=== PATIENT | female | born 1960 | race Caucasian/White ===

== ENCOUNTER → 2017-10-21 07:49 | Outpatient (CLI) | payer BC, SELFPAY ==
[2017-10-21 08:17] LABS: Add Manual Diff / Slide Review NO; Basophils Percent Auto 0.5 % (0-2); Eosinophils Percent Auto 0.1 % (2-4); Hematocrit 41.9 % (36-46); Hemoglobin 14.2 g/dL (12.0-16.0); Lymphocytes Percent Auto 29.2 % (25-40); Mean Corpuscular HGB Conc 33.8 % (30-36); Mean Corpuscular Hemoglobin 28.8 PG (26-34); Mean Corpuscular Volume 85.2 fL (80-100); Monocytes Percent Auto 10.5 % (3-14); Neutrophils Absolute Auto 3200 /uL (3000-5900); Neutrophils Percent Auto 59.7 % (50-75); Platelet Count 193 X10^3/uL (150-400); Red Blood Cell Count 4.91 X10^6/uL (4.0-5.2); Red Cell Distribution Width 13.4 % (11.6-14.8); White Blood Cell Count 5.3 X10^3/uL (4.5-11.0)
[2017-10-21 08:21] LABS: Hemoglobin A1C% w Est Avg Glu 6.9 % (4.0-6.0)
[2017-10-21 08:50] LABS: Alanine Aminotransferase 71 IU/L (9-52); Albumin 4.1 g/dL (3.5-5.0); Albumin Globulin Ratio 1.3 (1.0-2.8); Alkaline Phosphatase 63 U/L (38-126); Aspartate Aminotransferase 50 IU/L (14-36); Blood Urea Nitrogen 9 mg/dL (7-17); Calcium 9.3 mg/dL (8.4-10.2); Carbon Dioxide 29 mmol/L (22-32); Chloride 102 mmol/L (98-107); Cholesterol 157 mg/dL (140-199); Estimated Glomerular Filt Rate > 60.0 mL/min (>60); Globulin 3.1 g/dL (1.7-4.1); Glucose 100 mg/dL (70-100); HDL Cholesterol 63 mg/dL (40-60); HEMOLYSIS < 15 (0-50); LDL Cholesterol Calculated 71 mg/dL (<100); Potassium 4.3 mmol/L (3.4-5.1); Sodium 141 mmol/L (137-145); Total Protein 7.2 g/dL (6.3-8.2); Triglycerides 115 mg/dL (35-150)
[2017-10-21 09:19] LABS: TSH w/ Reflex to FT4 1.47 uIU/mL (0.47-4.68)
[2017-10-21 12:04] LABS: Creatinine Urine Random 50.7 mg/dL
[2017-10-21 12:10] LABS: Microalbumi Creatinin Ratio Ur 11.8 ug/mg CR (<30); Microalbumin Urine Random < 0.6 mg/dL (0-1.6)
== END ==
PROVIDERS: PCP Family Medicine; Visit Provider Family Medicine
DX: K76.0 Fatty (change of) liver, not elsewhere classified (principal); E11.65 Type 2 diabetes mellitus with hyperglycemia; Z79.4 Long term (current) use of insulin; Z00.00 Encounter for general adult medical examination without abnormal findings
CPT/HCPCS: 36415; 80053; 80061; 82043; 82570; 83036; 84443; 85025

== ENCOUNTER → 2017-10-28 12:34 | Outpatient (CLI) | payer BC, SELFPAY ==
--- NOTE | 2017-10-28 | DI.US.S_ITS ---
PROCEDURE: US SOFT TISSUE HEAD AND NECK INDICATIONS: NECK MASS OSTEOPOROSIS TECHNIQUE: Real-time scanning was performed of the neck region of interest, with image documentation. COMPARISON: None. FINDINGS: No sonographic abnormality seen corresponding to the palpable abnormality. IMPRESSION: No sonographic abnormality. Dictated by: Rico HECTOR Interpreted: Ariadna Overton MD on 10/28/2017 at 13:30 Approved by: Ariadna Overton MD, PhD on 10/28/2017 at 15:35
== END ==
PROVIDERS: Family Provider Nurse Practitioner; PCP Family Medicine; Visit Provider Family Medicine
DX: R22.1 Localized swelling, mass and lump, neck (principal); M85.851 Other specified disorders of bone density and structure, right thigh
CPT/HCPCS: 76536; 77080

== ENCOUNTER → 2017-12-03 15:07 | Outpatient (CLI) | payer BC, SELFPAY ==
[2017-12-03 16:11] LABS: Alanine Aminotransferase 79 IU/L (9-52); Albumin 4.2 g/dL (3.5-5.0); Albumin Globulin Ratio 1.6 (1.0-2.8); Alkaline Phosphatase 68 U/L (38-126); Aspartate Aminotransferase 67 IU/L (14-36); BUN Creatinine Ratio 18.3 (6-22); Bilirubin Total 0.8 mg/dL (0.2-1.3); Blood Urea Nitrogen 11 mg/dL (7-17); Calcium 9.7 mg/dL (8.4-10.2); Carbon Dioxide 26 mmol/L (22-32); Chloride 100 mmol/L (98-107); Estimated Glomerular Filt Rate > 60.0 mL/min (>60); Globulin 2.6 g/dL (1.7-4.1); Glucose 179 mg/dL (70-100); HEMOLYSIS < 15 (0-50); Potassium 4.2 mmol/L (3.4-5.1); Sodium 139 mmol/L (137-145); Total Protein 6.8 g/dL (6.3-8.2)
== END ==
PROVIDERS: Family Provider Nurse Practitioner; PCP Family Medicine; Visit Provider Family Medicine
DX: E11.65 Type 2 diabetes mellitus with hyperglycemia (principal); Z79.4 Long term (current) use of insulin; K76.0 Fatty (change of) liver, not elsewhere classified
CPT/HCPCS: 36415; 80053

== ENCOUNTER → 2017-12-06 13:16 | Outpatient (CLI) | payer BC, SELFPAY ==
--- NOTE | 2017-12-06 13:19 | DI.CT.S_ITS ---
PROCEDURE: CT CHEST W CON INDICATIONS: Follow up Pulmonary Nodule TECHNIQUE: After the administration of intravenous contrast, 5 mm thick sections acquired from the pulmonary apices to the posterior costophrenic angles. 7 mm thick coronal and sagittal MIP reformats were acquired. For radiation dose reduction, the following was used: automated exposure control, adjustment of mA and/or kV according to patient size. COMPARISON: [facility], CT, THORAX WITH CONTRAST, 10/22/2010, 9:03. [facility], CT, THORAX WITH CONTRAST, 05/28/2010, 11:04. [facility], CT, UPPER EXTREMITY WO CONTRAST, 01/17/2015, 12:56. [facility], CR, CHEST 2 VIEW, 06/05/2017, 11:03. [facility], CT, THORAX WITHOUT CONTRAST, 04/29/2011, 8:13. FINDINGS: Image quality: Excellent. Lungs and pleura: Multiple subpleural pulmonary nodules were present on 05/28/2010. Many nodules are no longer present. A few residual nodules are either decreased in size or stable. No new nodules are present. No acute air space opacities. No pleural effusions or pneumothorax. Central and peripheral airways are patent and normal in caliber. Mediastinum: Heart size is normal. No pericardial effusion. No mediastinal or hilar adenopathy by size criteria. Thoracic aorta and central pulmonary arteries are normal in size. Esophagus is normal in caliber. No hiatal hernia. Bones and chest wall: Multiple surgical clips are noted in the right breast and axilla No suspicious bony lesions. No vertebral body compression fractures. No axillary or supraclavicular adenopathy by size criteria. Thyroid gland is normal. Abdomen: There is diffuse hepatic fatty infiltration. Several small indeterminate hepatic hypodensities are noted, unchanged in size. Visualized upper abdominal solid organs appear normal. Upper abdominal bowel loops are normal in caliber. IMPRESSION: 1. Stable or decrease in size of several lung nodules. No new nodules identified. 2. Hepatic steatosis. 3. Several small indeterminate low density nodules are present in liver, unchanged in size, most likely small hepatic cysts or hemangiomas. If clinically indicated, MRI may be obtained to confirm cystic nature. Dictated by: Ivan Reyes M.D. on 12/06/2017 at 15:02 Approved by: Ivan Reyes M.D. on 12/06/2017 at 15:35
== END ==
PROVIDERS: Family Provider Nurse Practitioner; PCP Family Medicine; Visit Provider Family Medicine
DX: R91.8 Other nonspecific abnormal finding of lung field (principal)
CPT/HCPCS: 71260; Q9967

== ENCOUNTER → 2018-01-20 14:02 | Outpatient (CLI) | payer BC, SELFPAY | PROVIDERS: Family Provider Nurse Practitioner; PCP Family Medicine; Visit Provider Nurse Practitioner Family | DX: M79.2 Neuralgia and neuritis, unspecified (principal) | CPT/HCPCS: 36415; 86787 ==

== ENCOUNTER → 2018-08-05 15:54 | Outpatient (CLI) | payer BC, SELFPAY ==
[2018-08-05 17:49] LABS: Vitamin D 25 Hydroxy (D3) 52.4 ng/mL (30.0-100.0)
== END ==
PROVIDERS: Family Provider Nurse Practitioner; PCP Family Medicine; Visit Provider Nurse Practitioner
DX: E55.9 Vitamin D deficiency, unspecified (principal)
CPT/HCPCS: 36415; 82306

== ENCOUNTER → 2019-02-23 08:36 | Outpatient (CLI) | payer BC, SELFPAY ==
[2019-02-23 10:01] LABS: Creatinine Urine Random 230.2 mg/dL; Protein (Total) Urine Random 14 mg/dL (0-12); Protein Creatinine Ratio Urine 0.06 GRAM/24H
[2019-02-23 10:04] LABS: Alanine Aminotransferase 70 IU/L (9-52); Albumin 4.7 g/dL (3.5-5.0); Albumin Globulin Ratio 1.6 (1.0-2.8); Alkaline Phosphatase 78 U/L (38-126); Aspartate Aminotransferase 56 IU/L (14-36); Bilirubin Total 1.2 mg/dL (0.2-1.3); Bilirubin Unconjugated 1.1 mg/dL (0.0-1.1); HEMOLYSIS < 15 (0-50); Total Protein 7.7 g/dL (6.3-8.2)
== END ==
PROVIDERS: Family Provider Family Medicine; PCP Family Medicine; Visit Provider Internal Medicine Endocrinology, Diabetes & Metabolism
DX: E11.9 Type 2 diabetes mellitus without complications (principal); R74.8 Abnormal levels of other serum enzymes
CPT/HCPCS: 36415; 80076; 82570; 84156

== ENCOUNTER → 2019-06-28 08:53 | Outpatient (CLI) | payer BC, SELFPAY ==
[2019-06-28 10:53] LABS: Hemoglobin A1C% w Est Avg Glu 6.4 % (4.0-6.0)
[2019-06-28 11:38] LABS: Alanine Aminotransferase 53 IU/L (<35); Albumin 4.4 g/dL (3.5-5.0); Albumin Globulin Ratio 1.5 (1.0-2.8); Alkaline Phosphatase 77 U/L (38-126); Aspartate Aminotransferase 45 IU/L (14-36); BUN Creatinine Ratio 15.7 (6-22); Blood Urea Nitrogen 11 mg/dL (7-17); Calcium 9.9 mg/dL (8.4-10.2); Carbon Dioxide 25 mmol/L (22-32); Chloride 104 mmol/L (98-107); Estimated Glomerular Filt Rate > 60.0 mL/min (>60); Globulin 2.9 g/dL (1.7-4.1); Glucose 175 mg/dL (70-100); HEMOLYSIS < 15 (0-50); Potassium 4.6 mmol/L (3.4-5.1); Sodium 140 mmol/L (137-145); Total Protein 7.3 g/dL (6.3-8.2)
[2019-06-28 11:55] LABS: Free T4, Direct Thyroxine 0.87 ng/dL (0.78-2.19)
[2019-06-28 12:09] LABS: Thyroid Stimulating Hormone 0.92 uIU/mL (0.47-4.68)
== END ==
PROVIDERS: Family Provider Family Medicine; PCP Family Medicine; Referring Provider Internal Medicine Endocrinology, Diabetes & Metabolism; Visit Provider Internal Medicine Endocrinology, Diabetes & Metabolism
DX: E11.9 Type 2 diabetes mellitus without complications (principal)
CPT/HCPCS: 36415; 80053; 83036; 84439; 84443

== ENCOUNTER → 2020-01-09 08:14 | Outpatient (CLI) | payer BC, SELFPAY ==
[2020-01-09 09:41] LABS: Hemoglobin A1C% w Est Avg Glu 6.8 % (4.0-6.0)
[2020-01-09 10:15] LABS: Cholesterol 176 mg/dL (140-199); HDL Cholesterol 68 mg/dL (40-60); LDL Cholesterol Calculated 85 mg/dL (<100); Triglycerides 115 mg/dL (35-150)
[2020-01-09 10:17] LABS: Creatinine Urine Random 76.1 mg/dL
[2020-01-09 10:21] LABS: Microalbumi Creatinin Ratio Ur 10.5 ug/mg CR (<30); Microalbumin Urine Random 0.8 mg/dL (0-1.6)
== END ==
PROVIDERS: Family Provider Family Medicine; PCP Family Medicine; Referring Provider Nurse Practitioner Family; Visit Provider Nurse Practitioner Family
DX: E11.9 Type 2 diabetes mellitus without complications (principal)
CPT/HCPCS: 36415; 80061; 82043; 82570; 83036

== ENCOUNTER → 2020-08-28 10:16 | Outpatient (CLI) | payer BC, SELFPAY ==
[2020-08-28 12:27] LABS: Cholesterol 126 mg/dL (140-199); HDL Cholesterol 72 mg/dL (40-60); LDL Cholesterol Calculated 35 mg/dL (<100); Triglycerides 95 mg/dL (35-150)
[2020-08-28 12:29] LABS: Creatinine Urine Random 132.3 mg/dL
[2020-08-28 12:33] LABS: Microalbumi Creatinin Ratio Ur 7.5 ug/mg CR (<30)
== END ==
PROVIDERS: Family Provider Family Medicine; PCP Family Medicine; Referring Provider Nurse Practitioner Family; Visit Provider Nurse Practitioner Family
DX: E11.9 Type 2 diabetes mellitus without complications (principal)
CPT/HCPCS: 36415; 80061; 82043; 82570

== ENCOUNTER → 2020-09-20 09:48 | Outpatient (CLI) | payer BC, SELFPAY ==
[2020-09-20 11:19] LABS: COVID19 -Nasal RAPID Negative (Negative)
== END ==
PROVIDERS: Family Provider Family Medicine; PCP Family Medicine; Referring Provider Surgery; Visit Provider Surgery
DX: Z20.822 Contact with and (suspected) exposure to COVID-19 (principal)
CPT/HCPCS: 87635; C9803

== ENCOUNTER 2020-09-23 06:27 | Day surgery (SDC) | payer BC, SELFPAY ==
--- NOTE | 2020-09-23 | PATH_ITS ---
[facility] Accession Number: [id number] . 01 Material submitted: . colon - SIGMOID POLYP . 02 Diagnosis: Sigmoid Colon, Polyp, Biopsy: Tubular adenoma. MRV 09/26/2020 1236 Local . 02 Electronically signed: . Raquel Jean Baptiste MD, Pathologist NPI- [id number] . 01 Gross description: . SIGMOID POLYP: Received in formalin is 1 fragment(s) of hale, soft tissue measuring 0.6 x 0.3 x 0.3 cm submitted entirely in 1 cassette(s) /ADA 09/24/2020 2250 Local . 02 Pathologist provided ICD-10: D12.5 . 02 CPT . 817407 Performed at: 01 [facility] [address] [facility], [place], [place] [id number] MD Flavio Neff MD Phone: [phone] Performed at: 02 [facility] [address] [place], [place] [id number] MD Raquel Jean Baptiste MD Phone: [phone]
[2020-09-23] MEDS: LACTATED RINGERS 1,000 ML 200 ML IV (07:30)
[2020-09-23 07:31] VITALS: BP 157/90; PULSE 96; RESP 14; TEMP 36.6; O2SAT 97; BMI 34.1
--- NOTE | 2020-09-23 07:45 | PM.HP.1 ---
History of Present Illness History of Present Illness Date Patient Seen: 09/23/20 Time Patient Seen: 07:45 Chief complaint: SCREENING COLONOSCOPY Narrative: The patient presents for colorectal sreening. She had a previous colonoscopy 10 years which was normal.. No personal or family history of colon cancer. On further history denies any recent gastrointestinal symptoms. No nausea, vomiting, abdominal pain, loss of appetite, unexplained weight loss, change in bowel habits, diarrhea, constipation, melena, hematochezia, or bright red blood per rectum. Patient History Medical History Abnormal Pap smear of cervix Anxiety Depression Diabetes mellitus Ductal carcinoma in situ (DCIS) of right breast Obstructive sleep apnea of adult Surgical History Status post breast biopsy (1986) Status post delivery (1990) Status post chemotherapy (2005) Status post dilation and curettage (2011) Status post excision of lipoma (1970) Status post laparoscopy (1983) Status post radiation therapy (2005) Status post surgery (12/04/11) Status post tonsillectomy and adenoidectomy (1964) Status post tubal ligation (1990) Status post wrist surgery (2001) Family & Social History Social History: household members spouse lives independently Yes caregiver/support person No Tobacco & Substance use: Smoking Status Never smoker alcohol intake current alcohol intake frequency holiday/special occasion Substance Use Type does not use Meds Home Medications and Allergies Home Medications Medication Instructions Recorded Confirmed Type desvenlafaxine succinate 25 mg 25 mg PO DAILY 10/18/17 09/23/20 History tablet,extended release 24 hr lorazepam 0.5 mg tablet 0.5 mg PO BEDTIME 02/07/18 09/23/20 History blood sugar diagnostic #10 each 08/30/18 09/02/18 History lamotrigine 100 mg tablet 100 mg PO .QHS #0 tab 08/30/18 09/23/20 History lancets #50 each 08/30/18 09/02/18 History melatonin 5 mg tablet 5 mg PO BEDTIME 08/30/18 09/23/20 History metformin 500 mg tablet 500 mg PO .COMPLEX 08/30/18 09/23/20 History Respironics Dreamstation CPAP #1 ea 05/06/19 05/06/19 History glimepiride 4 mg tablet 8 mg PO BID 03/03/19 09/23/20 History nystatin 100,000 unit/gram topical 1 applictn TOP TID #60 gram 07/18/19 09/23/20 Rx powder buspirone 10 mg tablet 20 mg PO BID tab 01/18/20 09/23/20 History dulaglutide 1.5 mg/0.5 mL 0.75 mg SUBCUT QWEEK ml 01/18/20 09/23/20 History subcutaneous pen injector pramipexole 0.25 mg tablet 0.25 mg PO DAILY 01/18/20 09/23/20 History chlorpheniramine maleate 4 mg PO BID 09/23/20 09/23/20 History [Chlorpheniramine Allergy] rosuvastatin 5 mg PO BEDTIME 09/23/20 09/23/20 History Allergies Allergy/AdvReac Type Severity Reaction Status Date / Time hydrocodone [HYDROCODONE] Allergy Mild ITCHING Verified 09/23/20 07:15 erythromycin base AdvReac Unknown GI UPSET Verified 09/23/20 07:15 [ERYTHROMYCIN BASE] TO GENERIC Review of Systems Review of Systems ROS: Yes All systems reviewed with the patient and are negative except as otherwise documented Exam Vital Signs (past 8 hours): - 09/23/20 07:31 Temperature 98 F Pulse Rate 96 H Respiratory Rate 14 Blood Pressure 157/90 H Pulse Oximetry 97 Oxygen Delivery Method Room Air Narrative Exam Narrative: GENERAL-well developed adult woman, no acute distress HEENT-no scleral icterus, hearing intact NECK-no JVD, trachea midline CVS- regular rate, no peripheral edema RESP-unlabored respiratory effort, no audible wheezing GI-soft, nontender nondistended MSK-no cyanosis or clubbing, extremities without deformity SKIN-warm, dry NEURO-alert and oriented, no focal deficits PYSCH-Appropriate mood and affect Assessment & Plan Assessment & Plan narrative: The patient requires colorectal screening and colonoscopy is recommended. Technical details were discussed. Risks, benefits, alternatives explained. Risks including but not limited to myocardial infarction, aspiration, bleeding, pain, missed lesion, incomplete examination, need for further radiographic studies, colonic perforation, and need for major abdominal surgery were discussed. All questions were answered to their satisfaction, and they are in agreement with this plan.
[2020-09-23] MEDS: fentaNYL 250 MCG/5 ML INJ IV (08:04)
[2020-09-23] MEDS: MIDAZOLAM 5 MG/5 ML VIAL IV (08:07)
[2020-09-23 08:20] VITALS: BP 150/90; PULSE 83; RESP 12; TEMP 36.6; O2SAT 91
--- NOTE | 2020-09-23 08:20 | P.OP.ENDO_ITS ---
Operative Date/Time/Diagnoses Date of procedure: 09/23/20 Time of procedure: 08:20 Pre-op diagnosis: Screening colonoscopy Post-op diagnosis: same Procedure & Clinicians Study performed: Colonoscopy polypectomy Same procedure as scheduled: Yes Indications: Screening colonoscopy Surgeon: Mal Sy Procedure Notes Procedure in detail: Medications: Conscious sedation using 7 mg IV midazolam and 150 mcg IV of fentanyl The history and physical was performed/updated and the patient is ASA class is 2. The procedure was discussed in detail with the patient. Potential risks complications including infection, bleeding, missed diagnosis, perforation, need for surgery, and were explained. Their questions were answered and informed consent was obtained. Patient was brought to the procedure room and placed standard monitoring equ ipment. The patient's vital signs were monitored continuously throughout the entire procedure. Prior to starting time-out was performed. The patient was placed in the left lateral recumbent position. Procedural sedation was administered. Examination began with a thorough inspection of the perianal area there was no evidence of fissures, fistulae, external hemorrhoids or cutaneous malignancy. The colonoscopy scope was then placed into the anal canal and was advanced to the cecum, which was identified by the ileocecal valve, the appendiceal orifice and the confluence of the taenia. The scope was then slowly withdrawn examining colon thoroughly in all directions, irrigating it of any residual stool. 1. 7 mm polyp within the sigmoid colon removed with cold snare. Hemostasis observed. 2. Grade 1 internal hemorrhoids The patient tolerated the procedure well. They will be discharged once criteria are met. The prep was of good/excellent quality. The withdrawl time was 8 minutes. The sedation time was 26 minutes. Specimen(s): other (Sigmoid polyp) Complications: none Impression: Colonic polyp Post-procedure Recommendations: Colonscopy in 5 years Disposition: same day surgery
[2020-09-23 08:25] VITALS: BP 147/77; PULSE 77; RESP 14; O2SAT 92
[2020-09-23 08:30] VITALS: BP 127/73; PULSE 89; RESP 19; O2SAT 92
[2020-09-23 08:35] VITALS: BP 136/65; PULSE 84; RESP 16
[2020-09-23 08:39] VITALS: BP 137/72; PULSE 82; RESP 17; TEMP 36.4; O2SAT 95
== END 2020-09-23 08:47 | disposition home or self-care (01) ==
PROVIDERS: Family Provider Family Medicine; PCP Family Medicine; Referring Provider Family Medicine; Visit Provider Surgery
PROC: 0DJD8ZZ Inspection of Lower Intestinal Tract, Via Natural or Artificial Opening Endoscopic (ICD-10-PCS; CPT 45378; principal; 2020-09-23 07:45)
DX: Z12.11 Encounter for screening for malignant neoplasm of colon (principal); K64.0 First degree hemorrhoids; G47.33 Obstructive sleep apnea (adult) (pediatric); E11.9 Type 2 diabetes mellitus without complications; F32.9 Major depressive disorder, single episode, unspecified; F41.9 Anxiety disorder, unspecified; Z79.84 Long term (current) use of oral hypoglycemic drugs; D12.5 Benign neoplasm of sigmoid colon
CPT/HCPCS: 45385; 99152; J2250; J3010

== ENCOUNTER → 2020-09-28 09:11 | Outpatient (CLI) | payer BC, SELFPAY ==
[2020-09-28 09:45] LABS: Hemoglobin A1C% w Est Avg Glu 7.6 % (4.0-6.0)
== END ==
PROVIDERS: Family Provider Family Medicine; PCP Family Medicine; Referring Provider Nurse Practitioner Family; Visit Provider Nurse Practitioner Family
DX: E11.8 Type 2 diabetes mellitus with unspecified complications (principal)
CPT/HCPCS: 36415; 83036

== ENCOUNTER → 2021-01-07 08:39 | Outpatient (CLI) | payer BC, SELFPAY ==
[2021-01-07 10:11] LABS: Hemoglobin A1C% w Est Avg Glu 6.3 % (4.0-6.0)
== END ==
PROVIDERS: Family Provider Family Medicine; PCP Family Medicine; Referring Provider Psychiatry & Neurology Psychiatry; Visit Provider Psychiatry & Neurology Psychiatry
DX: E11.9 Type 2 diabetes mellitus without complications (principal)
CPT/HCPCS: 36415; 83036

== ENCOUNTER → 2021-08-16 08:11 | Outpatient (CLI) | payer OTHER, SELFPAY ==
[2021-08-16 09:35] LABS: Hemoglobin A1C% w Est Avg Glu 7.7 % (4.0-6.0)
[2021-08-16 10:17] LABS: Alanine Aminotransferase 34 IU/L (<35); Albumin 4.2 g/dL (3.5-5.0); Albumin Globulin Ratio 1.7 (1.0-2.8); Alkaline Phosphatase 59 U/L (38-126); Aspartate Aminotransferase 34 IU/L (14-36); BUN Creatinine Ratio 15.4 (6-22); Bilirubin Total 1.4 mg/dL (0.2-1.3); Blood Urea Nitrogen 10 mg/dL (7-17); Calcium 9.3 mg/dL (8.4-10.2); Carbon Dioxide 29 mmol/L (22-32); Chloride 104 mmol/L (98-107); Cholesterol 124 mg/dL (140-199); Estimated Glomerular Filt Rate > 60 mL/min (>60); Globulin 2.5 g/dL (1.7-4.1); Glucose 162 mg/dL (80-110); HDL Cholesterol 69 mg/dL (40-60); HEMOLYSIS < 15 (0-50); LDL Cholesterol Calculated 39 mg/dL (<100); Potassium 4.4 mmol/L (3.4-5.1); Sodium 140 mmol/L (137-145); Total Protein 6.7 g/dL (6.3-8.2); Triglycerides 81 mg/dL (35-150)
[2021-08-16 10:47] LABS: TSH w/ Reflex to FT4 2.04 uIU/mL (0.47-4.68)
[2021-08-16 10:57] LABS: Creatinine Urine Random 124.1 mg/dL
[2021-08-16 10:58] LABS: Microalbumi Creatinin Ratio Ur 9.6 ug/mg CR (<30); Microalbumin Urine Random 1.2 mg/dL (0-1.6)
== END ==
PROVIDERS: Family Provider Family Medicine; PCP Family Medicine; Referring Provider Family Medicine; Visit Provider Family Medicine
DX: Z00.00 Encounter for general adult medical examination without abnormal findings (principal); E11.9 Type 2 diabetes mellitus without complications; Z79.4 Long term (current) use of insulin; Z13.6 Encounter for screening for cardiovascular disorders
CPT/HCPCS: 36415; 80053; 80061; 82043; 82570; 83036; 84443

== ENCOUNTER → 2022-03-04 13:42 | Outpatient (CLI) | payer OTHER, SELFPAY ==
[2022-03-04 14:42] LABS: Hemoglobin A1C% w Est Avg Glu 6.9 % (4.0-6.0)
== END ==
PROVIDERS: Family Provider Family Medicine; PCP Family Medicine; Referring Provider Nurse Practitioner; Visit Provider Nurse Practitioner
DX: E11.65 Type 2 diabetes mellitus with hyperglycemia (principal)
CPT/HCPCS: 36415; 83036

== ENCOUNTER → 2022-09-02 08:16 | Outpatient (CLI) | payer OTHER, SELFPAY ==
[2022-09-02 09:59] LABS: Alanine Aminotransferase 39 IU/L (<35); Albumin 4.3 g/dL (3.5-5.0); Albumin Globulin Ratio 1.8 (1.0-2.8); Alkaline Phosphatase 65 U/L (38-126); Aspartate Aminotransferase 39 IU/L (14-36); BUN Creatinine Ratio 12.7 (6-22); Bilirubin Total 1.5 mg/dL (0.2-1.3); Blood Urea Nitrogen 7 mg/dL (7-17); Calcium 9.1 mg/dL (8.4-10.2); Carbon Dioxide 26 mmol/L (22-32); Chloride 103 mmol/L (98-107); Cholesterol 125 mg/dL (140-199); Estimated Glomerular Filt Rate > 60 mL/min (>60); Globulin 2.4 g/dL (1.7-4.1); Glucose 115 mg/dL (80-110); HDL Cholesterol 63 mg/dL (40-60); HEMOLYSIS < 15 (0-50); LDL Cholesterol Calculated 46 mg/dL (<100); Potassium 4.4 mmol/L (3.4-5.1); Sodium 137 mmol/L (137-145); Total Protein 6.7 g/dL (6.3-8.2); Triglycerides 82 mg/dL (35-150)
[2022-09-02 10:09] LABS: Creatinine Urine Random 83.8 mg/dL
[2022-09-02 10:11] LABS: Microalbumi Creatinin Ratio Ur 13.1 ug/mg CR (<30); Microalbumin Urine Random 1.1 mg/dL (0-1.6)
[2022-09-03 15:51] LABS: x Labcorp Estim. Avg Glu (eAG) 169 mg/dL (.); x Labcorp Hemoglobin A1c 7.5 % (4.8-5.6)
== END ==
PROVIDERS: Family Provider Family Medicine; PCP Family Medicine; Referring Provider Nurse Practitioner; Visit Provider Nurse Practitioner
DX: E11.65 Type 2 diabetes mellitus with hyperglycemia (principal)
CPT/HCPCS: 36415; 80053; 80061; 82043; 82570; 83036

== ENCOUNTER → 2022-12-11 08:03 | Outpatient (CLI) | payer OTHER, SELFPAY ==
[2022-12-12 04:12] LABS: Labcorp Hemoglobin (Hb) A1c 6.6 % (4.8-5.6)
== END ==
PROVIDERS: Family Provider Family Medicine; PCP Physician Assistant; Referring Provider Nurse Practitioner; Visit Provider Nurse Practitioner
DX: E11.65 Type 2 diabetes mellitus with hyperglycemia (principal)
CPT/HCPCS: 36415; 83036

== ENCOUNTER → 2023-03-09 09:07 | Outpatient (CLI) | payer OTHER, SELFPAY ==
[2023-03-09 11:16] LABS: Hemoglobin A1C% w Est Avg Glu 7.1 % (4.0-6.0)
== END ==
PROVIDERS: Family Provider Family Medicine; PCP Physician Assistant; Referring Provider Nurse Practitioner; Visit Provider Nurse Practitioner
DX: E11.65 Type 2 diabetes mellitus with hyperglycemia (principal)
CPT/HCPCS: 36415; 83036

== ENCOUNTER → 2023-06-11 08:39 | Outpatient (CLI) | payer OTHER, SELFPAY ==
[2023-06-11 10:04] LABS: Cholesterol 117 mg/dL (140-199); HDL Cholesterol 56 mg/dL (40-60); LDL Cholesterol Calculated 46 mg/dL (<100); Triglycerides 73 mg/dL (35-150); VLDL Cholesterol Calculated 15 mg/dL (2-30)
[2023-06-11 10:36] LABS: TSH w/ Reflex to FT4 1.58 uIU/mL (0.47-4.68)
[2023-06-11 10:53] LABS: Vitamin B12 261 pg/mL (239-931)
[2023-06-13 06:08] LABS: x Labcorp Estim. Avg Glu (eAG) 171 mg/dL (.); x Labcorp Hemoglobin A1c 7.6 % (4.8-5.6)
== END ==
LOC: LAB 08:41
PROVIDERS: Family Provider Family Medicine; PCP Physician Assistant; Referring Provider Nurse Practitioner; Visit Provider Nurse Practitioner
DX: E11.65 Type 2 diabetes mellitus with hyperglycemia (principal); E78.2 Mixed hyperlipidemia
CPT/HCPCS: 36415; 80061; 82607; 83036; 84443

== ENCOUNTER → 2023-08-31 09:46 | Outpatient (CLI) | payer OTHER, SELFPAY ==
[2023-08-31 10:31] LABS: Hemoglobin A1C% w Est Avg Glu 6.5 % (4.0-6.0)
[2023-08-31 10:52] LABS: Alanine Aminotransferase 22 IU/L (<35); Albumin 3.8 g/dL (3.5-5.0); Albumin Globulin Ratio 1.8 (1.0-2.8); Alkaline Phosphatase 88 U/L (38-126); Aspartate Aminotransferase 22 IU/L (14-36); BUN Creatinine Ratio 14.9 (6-22); Bilirubin Total 1.1 mg/dL (0.2-1.3); Blood Urea Nitrogen 7 mg/dL (7-17); Calcium 9.1 mg/dL (8.4-10.2); Carbon Dioxide 28 mmol/L (22-32); Chloride 109 mmol/L (98-107); Estimated Glomerular Filt Rate > 60 mL/min (>60); Globulin 2.1 g/dL (1.7-4.1); Glucose 163 mg/dL (80-110); HEMOLYSIS < 15 (0-50); Potassium 3.9 mmol/L (3.4-5.1); Sodium 140 mmol/L (137-145); Total Protein 5.9 g/dL (6.3-8.2)
== END ==
PROVIDERS: Family Provider Family Medicine; PCP Registered Nurse Diabetes Educator; Referring Provider Nurse Practitioner; Visit Provider Nurse Practitioner
DX: E11.65 Type 2 diabetes mellitus with hyperglycemia (principal)
CPT/HCPCS: 36415; 80053; 83036

== ENCOUNTER → 2023-12-01 17:21 | Outpatient (CLI) | payer OTHER, SELFPAY ==
[2023-12-01 18:26] LABS: Hemoglobin A1C% w Est Avg Glu 6.1 % (4.0-6.0)
[2023-12-01 20:24] LABS: Alanine Aminotransferase 32 IU/L (<35); Albumin 4.3 g/dL (3.5-5.0); Albumin Globulin Ratio 1.6 (1.0-2.8); Alkaline Phosphatase 83 U/L (38-126); Aspartate Aminotransferase 32 IU/L (14-36); BUN Creatinine Ratio 20.7 (6-22); Bilirubin Total 1.1 mg/dL (0.2-1.3); Blood Urea Nitrogen 12 mg/dL (7-17); Calcium 9.4 mg/dL (8.4-10.2); Carbon Dioxide 27 mmol/L (22-32); Chloride 103 mmol/L (98-107); Estimated Glomerular Filt Rate > 60 mL/min (>60); Globulin 2.7 g/dL (1.7-4.1); Glucose 94 mg/dL (80-110); HEMOLYSIS < 15 (0-50); Potassium 4.2 mmol/L (3.4-5.1); Sodium 138 mmol/L (137-145)
== END ==
PROVIDERS: Family Provider Family Medicine; PCP Registered Nurse Diabetes Educator; Referring Provider Nurse Practitioner; Visit Provider Nurse Practitioner
DX: E11.65 Type 2 diabetes mellitus with hyperglycemia (principal)
CPT/HCPCS: 36415; 80053; 83036

== ENCOUNTER → 2024-01-27 08:47 | Outpatient (CLI) | payer OTHER, SELFPAY ==
[2024-01-27 10:09] LABS: Add Manual Diff / Slide Review NO; Basophils Absolute Auto 0 /uL (0-100); Basophils Percent Auto 0.6 % (0-2); Eosinophils Absolute Auto 0 /uL (0-450); Eosinophils Percent Auto 0.4 % (2-4); Hematocrit 38.5 % (36-46); Hemoglobin 12.9 g/dL (12.0-16.0); Lymphocytes Absolute Auto 300 /uL (1100-4500); Lymphocytes Percent Auto 10.5 % (25-40); Mean Corpuscular HGB Conc 33.5 % (30-36); Mean Corpuscular Hemoglobin 29.4 PG (26-34); Mean Corpuscular Volume 87.6 fL (80-100); Monocytes Absolute Auto 400 /uL (0-900); Monocytes Percent Auto 12.2 % (3-14); Neutrophils Absolute Auto 2400 /uL (1500-7000); Neutrophils Percent Auto 76.3 % (50-75); Platelet Count 174 X10^3/uL (150-400); Red Cell Distribution Width 15.7 % (11.6-14.8); White Blood Cell Count 3.2 X10^3/uL (4.5-11.0)
[2024-01-27 10:37] LABS: Alanine Aminotransferase 29 IU/L (<35); Albumin Globulin Ratio 1.6 (1.0-2.8); Alkaline Phosphatase 75 U/L (38-126); Aspartate Aminotransferase 30 IU/L (14-36); BUN Creatinine Ratio 20.4 (6-22); Blood Urea Nitrogen 11 mg/dL (7-17); Calcium 8.5 mg/dL (8.4-10.2); Carbon Dioxide 24 mmol/L (22-32); Chloride 105 mmol/L (98-107); Estimated Glomerular Filt Rate > 60 mL/min (>60); Globulin 2.5 g/dL (1.7-4.1); Glucose 156 mg/dL (80-110); HEMOLYSIS < 15 (0-50); Magnesium 1.9 mg/dL (1.6-2.3); Phosphorous 2.6 mg/dL (2.8-4.1); Potassium 4.5 mmol/L (3.4-5.1); Sodium 136 mmol/L (137-145); Total Protein 6.5 g/dL (6.3-8.2)
== END ==
PROVIDERS: Family Provider Family Medicine; PCP Registered Nurse Diabetes Educator; Referring Provider Internal Medicine Hematology & Oncology; Visit Provider Internal Medicine Hematology & Oncology
DX: C50.411 Malignant neoplasm of upper-outer quadrant of right female breast (principal); Z17.0 Estrogen receptor positive status [ER+]
CPT/HCPCS: 36415; 80053; 83735; 84100; 85025

== ENCOUNTER → 2024-02-10 16:37 | Outpatient (CLI) | payer OTHER, SELFPAY ==
[2024-02-10 18:13] LABS: Add Manual Diff / Slide Review NO; Basophils Absolute Auto 0 /uL (0-100); Basophils Percent Auto 0.5 % (0-2); Eosinophils Absolute Auto 0 /uL (0-450); Eosinophils Percent Auto 0.8 % (2-4); Hematocrit 37.4 % (36-46); Hemoglobin 12.7 g/dL (12.0-16.0); Lymphocytes Absolute Auto 500 /uL (1100-4500); Lymphocytes Percent Auto 18.7 % (25-40); Mean Corpuscular Hemoglobin 29.9 PG (26-34); Monocytes Absolute Auto 300 /uL (0-900); Monocytes Percent Auto 9.7 % (3-14); Neutrophils Absolute Auto 1900 /uL (1500-7000); Neutrophils Percent Auto 70.3 % (50-75); Platelet Count 146 X10^3/uL (150-400); Red Blood Cell Count 4.25 X10^6/uL (4.0-5.2); Red Cell Distribution Width 15.9 % (11.6-14.8); White Blood Cell Count 2.7 X10^3/uL (4.5-11.0)
[2024-02-10 18:38] LABS: BUN Creatinine Ratio 17.4 (6-22); Blood Urea Nitrogen 16 mg/dL (7-17); Carbon Dioxide 24 mmol/L (22-32); Chloride 102 mmol/L (98-107); Estimated Glomerular Filt Rate > 60 mL/min (>60); Glucose 89 mg/dL (80-110); HEMOLYSIS < 15 (0-50); Magnesium 2.1 mg/dL (1.6-2.3); Potassium 4.1 mmol/L (3.4-5.1); Sodium 135 mmol/L (137-145)
== END ==
PROVIDERS: Family Provider Family Medicine; PCP Registered Nurse Diabetes Educator; Referring Provider Internal Medicine Hematology & Oncology; Visit Provider Internal Medicine Hematology & Oncology
DX: C50.411 Malignant neoplasm of upper-outer quadrant of right female breast (principal)
CPT/HCPCS: 36415; 80048; 83735; 84100; 85025

== ENCOUNTER → 2024-03-14 07:26 | Outpatient (CLI) | payer OTHER, SELFPAY ==
[2024-03-14 08:58] LABS: Hematocrit 30.9 % (36-46); Mean Corpuscular HGB Conc 35.5 % (30-36); Mean Corpuscular Hemoglobin 31.9 PG (26-34); Platelet Count 178 X10^3/uL (150-400); Red Blood Cell Count 3.43 X10^6/uL (4.0-5.2)
[2024-03-14 09:09] LABS: Add Manual Diff / Slide Review YES; White Blood Cell Count 1.7 X10^3/uL (4.5-11.0)
[2024-03-14 09:31] LABS: HEMOLYSIS < 15 (0-50); Iron 106 ug/dL (37-170)
[2024-03-14 09:35] LABS: Alanine Aminotransferase 59 IU/L (<35); Albumin 3.8 g/dL (3.5-5.0); Albumin Globulin Ratio 1.6 (1.0-2.8); Alkaline Phosphatase 44 U/L (38-126); Aspartate Aminotransferase 46 IU/L (14-36); BUN Creatinine Ratio 16.4 (6-22); Bilirubin Total 1.2 mg/dL (0.2-1.3); Blood Urea Nitrogen 12 mg/dL (7-17); Calcium 9.1 mg/dL (8.4-10.2); Carbon Dioxide 26 mmol/L (22-32); Chloride 104 mmol/L (98-107); Estimated Glomerular Filt Rate > 60 mL/min (>60); Globulin 2.4 g/dL (1.7-4.1); Glucose 104 mg/dL (80-110); HEMOLYSIS < 15 (0-50); Magnesium 1.4 mg/dL (1.6-2.3); Phosphorous 3.2 mg/dL (2.8-4.1); Potassium 4.5 mmol/L (3.4-5.1); Sodium 136 mmol/L (137-145); Total Protein 6.2 g/dL (6.3-8.2)
[2024-03-14 09:42] LABS: Percent Iron Saturation 31 % (15-50); Total Iron Binding Capacity 347 ug/dL (265-497); Transferrin 265 mg/dL (206-381)
[2024-03-14 09:44] LABS: Neutrophils Absolute Manual 731 /uL (3000-5900); Total Cells Counted 100
[2024-03-14 09:45] LABS: RBC Morphology Normal Morphology
[2024-03-14 10:07] LABS: Ferritin 94 ng/mL (11-264)
== END ==
PROVIDERS: Internal Medicine Hematology & Oncology; Family Provider Family Medicine; PCP Registered Nurse Diabetes Educator; Referring Provider Nurse Practitioner; Visit Provider Nurse Practitioner
DX: C50.411 Malignant neoplasm of upper-outer quadrant of right female breast (principal); R25.8 Other abnormal involuntary movements; E83.10 Disorder of iron metabolism, unspecified
CPT/HCPCS: 36415; 80053; 82728; 83540; 83550; 83735; 84100; 85007; 85025

== ENCOUNTER → 2024-03-20 07:41 | Outpatient (CLI) | payer OTHER, SELFPAY ==
[2024-03-20 08:22] LABS: Hemoglobin A1C% w Est Avg Glu 5.6 % (4.0-6.0)
== END ==
PROVIDERS: Family Provider Family Medicine; PCP Registered Nurse Diabetes Educator; Referring Provider Nurse Practitioner; Visit Provider Nurse Practitioner
DX: E11.65 Type 2 diabetes mellitus with hyperglycemia (principal)
CPT/HCPCS: 36415; 83036

== ENCOUNTER → 2024-04-10 08:34 | Outpatient (CLI) | payer OTHER, SELFPAY ==
[2024-04-10 10:02] LABS: Add Manual Diff / Slide Review NO; Basophils Absolute Auto 0 /uL (0-100); Basophils Percent Auto 1.4 % (0-2); Eosinophils Absolute Auto 0 /uL (0-450); Eosinophils Percent Auto 0.7 % (2-4); Hematocrit 32.6 % (36-46); Hemoglobin 11.3 g/dL (12.0-16.0); Lymphocytes Absolute Auto 400 /uL (1100-4500); Lymphocytes Percent Auto 18.5 % (25-40); Mean Corpuscular HGB Conc 34.7 % (30-36); Mean Corpuscular Hemoglobin 32.8 PG (26-34); Mean Corpuscular Volume 94.5 fL (80-100); Monocytes Absolute Auto 400 /uL (0-900); Monocytes Percent Auto 17.5 % (3-14); Neutrophils Absolute Auto 1500 /uL (1500-7000); Neutrophils Percent Auto 61.9 % (50-75); Platelet Count 186 X10^3/uL (150-400); Red Blood Cell Count 3.45 X10^6/uL (4.0-5.2); Red Cell Distribution Width 20.1 % (11.6-14.8); White Blood Cell Count 2.4 X10^3/uL (4.5-11.0)
[2024-04-10 10:15] LABS: Anisocytosis 2+
[2024-04-10 10:20] LABS: Alanine Aminotransferase 46 IU/L (<35); Albumin 3.7 g/dL (3.5-5.0); Albumin Globulin Ratio 1.4 (1.0-2.8); Alkaline Phosphatase 40 U/L (38-126); Aspartate Aminotransferase 45 IU/L (14-36); BUN Creatinine Ratio 12.9 (6-22); Bilirubin Total 1.3 mg/dL (0.2-1.3); Blood Urea Nitrogen 9 mg/dL (7-17); Calcium 9.2 mg/dL (8.4-10.2); Carbon Dioxide 30 mmol/L (22-32); Chloride 106 mmol/L (98-107); Estimated Glomerular Filt Rate > 60 mL/min (>60); Globulin 2.7 g/dL (1.7-4.1); Glucose 133 mg/dL (80-110); HEMOLYSIS < 15 (0-50); Magnesium 1.7 mg/dL (1.6-2.3); Phosphorous 2.7 mg/dL (2.8-4.1); Sodium 137 mmol/L (137-145); Total Protein 6.4 g/dL (6.3-8.2)
== END ==
PROVIDERS: Family Provider Family Medicine; PCP Registered Nurse Diabetes Educator; Referring Provider Internal Medicine Hematology & Oncology; Visit Provider Internal Medicine Hematology & Oncology
DX: C50.411 Malignant neoplasm of upper-outer quadrant of right female breast (principal)
CPT/HCPCS: 36415; 80053; 83735; 84100; 85025

== ENCOUNTER → 2024-06-29 09:03 | Outpatient (CLI) | payer OTHER, SELFPAY ==
[2024-06-29 09:44] LABS: Add Manual Diff / Slide Review NO; Basophils Absolute Auto 0 /uL (0-100); Basophils Percent Auto 1.3 % (0-2); Eosinophils Absolute Auto 0 /uL (0-450); Eosinophils Percent Auto 1.1 % (2-4); Hematocrit 33.9 % (36-46); Hemoglobin 11.9 g/dL (12.0-16.0); Lymphocytes Absolute Auto 700 /uL (1100-4500); Lymphocytes Percent Auto 32.5 % (25-40); Mean Corpuscular HGB Conc 35.1 % (30-36); Mean Corpuscular Hemoglobin 33.2 PG (26-34); Mean Corpuscular Volume 94.5 fL (80-100); Monocytes Absolute Auto 200 /uL (0-900); Monocytes Percent Auto 11.8 % (3-14); Neutrophils Absolute Auto 1100 /uL (1500-7000); Neutrophils Percent Auto 53.3 % (50-75); Platelet Count 181 X10^3/uL (150-400); Red Blood Cell Count 3.59 X10^6/uL (4.0-5.2); Red Cell Distribution Width 17.3 % (11.6-14.8)
[2024-06-29 09:56] LABS: Hemoglobin A1C% w Est Avg Glu 5.1 % (4.0-6.0)
[2024-06-29 10:08] LABS: Alanine Aminotransferase 22 IU/L (<35); Albumin 4.4 g/dL (3.5-5.0); Albumin Globulin Ratio 1.8 (1.0-2.8); Alkaline Phosphatase 41 U/L (38-126); Aspartate Aminotransferase 28 IU/L (14-36); BUN Creatinine Ratio 13.8 (6-22); Bilirubin Total 1.6 mg/dL (0.2-1.3); Blood Urea Nitrogen 12 mg/dL (7-17); Calcium 9.5 mg/dL (8.4-10.2); Carbon Dioxide 24 mmol/L (22-32); Chloride 103 mmol/L (98-107); Cholesterol 132 mg/dL (140-199); Estimated Glomerular Filt Rate > 60 mL/min (>60); Globulin 2.4 g/dL (1.7-4.1); Glucose 121 mg/dL (80-110); HDL Cholesterol 76 mg/dL (40-60); HEMOLYSIS < 15 (0-50); LDL Cholesterol Calculated 35 mg/dL (<100); Magnesium 1.5 mg/dL (1.6-2.3); Sodium 137 mmol/L (137-145); Total Protein 6.8 g/dL (6.3-8.2); Triglycerides 103 mg/dL (35-150)
[2024-06-30 04:08] LABS: Fructosamine 250 umol/L (0-285)
== END ==
LOC: LAB 09:06
PROVIDERS: Family Provider Family Medicine; PCP Registered Nurse Diabetes Educator; Referring Provider Internal Medicine Hematology & Oncology; Visit Provider Internal Medicine Hematology & Oncology
DX: E78.2 Mixed hyperlipidemia (principal); E11.65 Type 2 diabetes mellitus with hyperglycemia; C50.411 Malignant neoplasm of upper-outer quadrant of right female breast; Z17.0 Estrogen receptor positive status [ER+]
CPT/HCPCS: 36415; 80053; 80061; 82985; 83036; 83735; 85025

== ENCOUNTER → 2024-08-23 08:21 | Outpatient (CLI) | payer OTHER, SELFPAY ==
[2024-08-23 08:52] LABS: Hematocrit 32.4 % (36-46); Hemoglobin 11.5 g/dL (12.0-16.0); Mean Corpuscular HGB Conc 35.6 % (30-36); Mean Corpuscular Hemoglobin 35.1 PG (26-34); Mean Corpuscular Volume 98.6 fL (80-100); Platelet Count 173 X10^3/uL (150-400); Red Blood Cell Count 3.28 X10^6/uL (4.0-5.2); Red Cell Distribution Width 18.9 % (11.6-14.8)
[2024-08-23 09:11] LABS: Alanine Aminotransferase 22 IU/L (<35); Albumin 4.3 g/dL (3.5-5.0); Albumin Globulin Ratio 1.8 (1.0-2.8); Alkaline Phosphatase 36 U/L (38-126); Aspartate Aminotransferase 27 IU/L (14-36); BUN Creatinine Ratio 9.1 (6-22); Bilirubin Total 1.7 mg/dL (0.2-1.3); Blood Urea Nitrogen 8 mg/dL (7-17); Calcium 9.1 mg/dL (8.4-10.2); Carbon Dioxide 27 mmol/L (22-32); Chloride 104 mmol/L (98-107); Estimated Glomerular Filt Rate > 60 mL/min (>60); Globulin 2.4 g/dL (1.7-4.1); Glucose 146 mg/dL (70-99); HEMOLYSIS < 15 (0-50); Magnesium 1.5 mg/dL (1.6-2.3); Phosphorous 2.5 mg/dL (2.8-4.1); Potassium 3.7 mmol/L (3.4-5.1); Sodium 140 mmol/L (137-145); Total Protein 6.7 g/dL (6.3-8.2)
[2024-08-23 09:39] LABS: Add Manual Diff / Slide Review YES; White Blood Cell Count 1.8 X10^3/uL (4.5-11.0)
[2024-08-23 09:41] LABS: Anisocytosis 1+; Neutrophils Absolute Manual 1008 /uL (3000-5900); Ovalocytes 1+; Total Cells Counted 50
== END ==
PROVIDERS: Family Provider Family Medicine; PCP Registered Nurse Diabetes Educator; Referring Provider Internal Medicine Hematology & Oncology; Visit Provider Internal Medicine Hematology & Oncology
DX: C50.411 Malignant neoplasm of upper-outer quadrant of right female breast (principal)
CPT/HCPCS: 36415; 80053; 83735; 84100; 85007; 85025

== ENCOUNTER → 2024-10-17 09:56 | Outpatient (CLI) | payer OTHER, SELFPAY ==
[2024-10-17 11:03] LABS: Add Manual Diff / Slide Review NO; Basophils Absolute Auto 0 /uL (0-100); Basophils Percent Auto 1.7 % (0-2); Eosinophils Absolute Auto 0 /uL (0-450); Eosinophils Percent Auto 1.1 % (2-4); Hematocrit 34.7 % (36-46); Lymphocytes Absolute Auto 500 /uL (1100-4500); Lymphocytes Percent Auto 21.4 % (25-40); Mean Corpuscular HGB Conc 34.7 % (30-36); Mean Corpuscular Hemoglobin 37.1 PG (26-34); Mean Corpuscular Volume 106.8 fL (80-100); Monocytes Absolute Auto 200 /uL (0-900); Monocytes Percent Auto 10.1 % (3-14); Neutrophils Absolute Auto 1500 /uL (1500-7000); Neutrophils Percent Auto 65.7 % (50-75); Platelet Count 183 X10^3/uL (150-400); Red Blood Cell Count 3.25 X10^6/uL (4.0-5.2); Red Cell Distribution Width 14.6 % (11.6-14.8); White Blood Cell Count 2.3 X10^3/uL (4.5-11.0)
[2024-10-17 11:27] LABS: Alanine Aminotransferase 22 IU/L (<35); Albumin 4.6 g/dL (3.5-5.0); Alkaline Phosphatase 37 U/L (38-126); Aspartate Aminotransferase 28 IU/L (14-36); BUN Creatinine Ratio 12.1 (6-22); Bilirubin Total 1.4 mg/dL (0.2-1.3); Blood Urea Nitrogen 12 mg/dL (7-17); Calcium 9.8 mg/dL (8.4-10.2); Carbon Dioxide 21 mmol/L (22-32); Chloride 101 mmol/L (98-107); Estimated Glomerular Filt Rate > 60 mL/min (>60); Globulin 2.3 g/dL (1.7-4.1); Glucose 133 mg/dL (70-99); HEMOLYSIS < 15 (0-50); Magnesium 1.3 mg/dL (1.6-2.3); Phosphorous 2.4 mg/dL (2.8-4.1); Potassium 4.3 mmol/L (3.4-5.1); Sodium 133 mmol/L (137-145); Total Protein 6.9 g/dL (6.3-8.2)
== END ==
PROVIDERS: Family Provider Family Medicine; PCP Registered Nurse Diabetes Educator; Referring Provider Internal Medicine Hematology & Oncology; Visit Provider Internal Medicine Hematology & Oncology
DX: C50.411 Malignant neoplasm of upper-outer quadrant of right female breast (principal)
CPT/HCPCS: 36415; 80053; 83735; 84100; 85025

== ENCOUNTER → 2024-11-01 07:39 | Outpatient (CLI) | payer OTHER, SELFPAY ==
[2024-11-01 08:35] LABS: Cholesterol 141 mg/dL (140-199); HDL Cholesterol 80 mg/dL (40-60); Triglycerides 107 mg/dL (35-150)
[2024-11-01 08:36] LABS: Hemoglobin A1C% w Est Avg Glu 5.2 % (4.0-6.0)
== END ==
PROVIDERS: Family Provider Family Medicine; PCP Registered Nurse Diabetes Educator; Referring Provider Nurse Practitioner; Visit Provider Nurse Practitioner
DX: E11.65 Type 2 diabetes mellitus with hyperglycemia (principal)
CPT/HCPCS: 36415; 80061; 82985; 83036

== ENCOUNTER → 2024-11-14 10:53 | Outpatient (CLI) | payer OTHER, SELFPAY ==
[2024-11-14 11:26] LABS: Add Manual Diff / Slide Review NO; Hematocrit 32.9 % (36-46); Hemoglobin 11.7 g/dL (12.0-16.0); Lymphocytes Absolute Auto 400 /uL (1100-4500); Mean Corpuscular HGB Conc 35.7 % (30-36); Mean Corpuscular Hemoglobin 37.0 PG (26-34); Mean Corpuscular Volume 103.8 fL (80-100); Platelet Count 162 X10^3/uL (150-400)
[2024-11-14 11:55] LABS: Alanine Aminotransferase 23 IU/L (<35); Albumin 4.3 g/dL (3.5-5.0); Albumin Globulin Ratio 1.7 (1.0-2.8); Alkaline Phosphatase 37 U/L (38-126); Blood Urea Nitrogen 11 mg/dL (7-17); Calcium 9.8 mg/dL (8.4-10.2); Carbon Dioxide 21 mmol/L (22-32); Chloride 104 mmol/L (98-107); Estimated Glomerular Filt Rate > 60 mL/min (>60); Globulin 2.5 g/dL (1.7-4.1); Glucose 124 mg/dL (70-99); HEMOLYSIS < 15 (0-50); Magnesium 1.4 mg/dL (1.6-2.3); Phosphorous 2.3 mg/dL (2.8-4.1); Potassium 4.2 mmol/L (3.4-5.1); Sodium 135 mmol/L (137-145); Total Protein 6.8 g/dL (6.3-8.2)
== END ==
PROVIDERS: Family Provider Family Medicine; PCP Registered Nurse Diabetes Educator; Referring Provider Internal Medicine Hematology & Oncology; Visit Provider Internal Medicine Hematology & Oncology
DX: C50.411 Malignant neoplasm of upper-outer quadrant of right female breast (principal)
CPT/HCPCS: 36415; 80053; 83735; 84100; 85025

== ENCOUNTER → 2024-11-15 11:03 | Outpatient (CLI) | payer OTHER, SELFPAY ==
--- NOTE | 2024-11-15 11:05 | DI.RAD.S_ITS ---
PROCEDURE: XR HAND RT 2V INDICATIONS: eval R 1st CMC joint and thumb pain TECHNIQUE: 3 views of the hand(s) acquired. COMPARISON: None. FINDINGS: Bones: Diffuse osteoporosis noted. Mild deformity dorsal triquetrum likely represents an old fracture. Joints: Severe STT 1st CMC 1st MCP , 1st PIP, 2nd 3rd and 4th DIP degeneration noted. There is also moderate degeneration in the remaining interphalangeal joints. Soft tissues: No soft tissue abnormality. IMPRESSION: Multilevel degeneration. Osteoporosis Dictated by: Yousuf House M.D. on 11/16/2024 at 10:23 Approved by: Yousuf House M.D. on 11/16/2024 at 10:25
== END ==
PROVIDERS: Family Provider Family Medicine; PCP Registered Nurse Diabetes Educator; Referring Provider Registered Nurse Diabetes Educator; Visit Provider Registered Nurse Diabetes Educator
DX: M18.11 Unilateral primary osteoarthritis of first carpometacarpal joint, right hand (principal); M19.041 Primary osteoarthritis, right hand; M81.0 Age-related osteoporosis without current pathological fracture; M79.641 Pain in right hand
CPT/HCPCS: 73120

== ENCOUNTER → 2025-02-23 10:42 | Outpatient (CLI) | payer MEDICARE, SELFPAY ==
[2025-02-23 11:20] LABS: Add Manual Diff / Slide Review NO; Hematocrit 32.1 % (36-46); Hemoglobin 11.2 g/dL (12.0-16.0); Lymphocytes Absolute Auto 400 /uL (1100-4500); Mean Corpuscular HGB Conc 35.0 % (30-36); Mean Corpuscular Hemoglobin 35.3 PG (26-34); Mean Corpuscular Volume 100.7 fL (80-100); Platelet Count 197 X10^3/uL (150-400)
[2025-02-23 11:54] LABS: Alanine Aminotransferase 28 IU/L (<35); Albumin 4.3 g/dL (3.5-5.0); Albumin Globulin Ratio 1.6 (1.0-2.8); Alkaline Phosphatase 47 U/L (38-126); Blood Urea Nitrogen 14 mg/dL (7-17); Calcium 9.3 mg/dL (8.4-10.2); Carbon Dioxide 21 mmol/L (22-32); Chloride 106 mmol/L (98-107); Estimated Glomerular Filt Rate > 60 mL/min (>60); Globulin 2.7 g/dL (1.7-4.1); Glucose 138 mg/dL (70-99); HEMOLYSIS < 15 (0-50); Magnesium 1.8 mg/dL (1.6-2.3); Phosphorous 2.7 mg/dL (2.8-4.1); Potassium 4.3 mmol/L (3.4-5.1); Sodium 138 mmol/L (137-145); Total Protein 7.0 g/dL (6.3-8.2)
== END ==
PROVIDERS: PCP Registered Nurse Diabetes Educator; Referring Provider Internal Medicine Hematology & Oncology; Visit Provider Internal Medicine Hematology & Oncology
DX: C50.411 Malignant neoplasm of upper-outer quadrant of right female breast (principal)
CPT/HCPCS: 36415; 80053; 83735; 84100; 85025

== ENCOUNTER 2025-02-23 12:31 | Emergency (ER) | payer MEDICARE, SELFPAY ==
[2025-02-23 12:44] VITALS: BP 182/84; PULSE 94; RESP 18; TEMP 36.3; O2SAT 100; BMI 30.6
--- NOTE | 2025-02-23 12:52 | DI.RAD.S_ITS ---
PROCEDURE: XR CHEST 2V INDICATIONS: right upper chest pain, post mastectomy TECHNIQUE: 2 views of the chest were acquired. COMPARISON: [facility], , CHEST 2 VIEW, 06/05/2017, 11:03. FINDINGS: Surgical changes and devices: Surgical clips project over the chest wall. Lungs and pleura: Lungs are clear. No pleural effusions or pneumothorax. Mediastinum: Mediastinal contours are normal. Heart size is normal. Bones and chest wall: No suspicious bony abnormalities. Soft tissues appear unremarkable. IMPRESSION: No acute cardiopulmonary abnormality is seen. Dictated by: Stephen Moran M.D. on 02/23/2025 at 13:17 Approved by: Stephen Moran M.D. on 02/23/2025 at 13:18
--- NOTE | 2025-02-23 12:53 | ED.EXTPRO ---
HPI - Extremity Problem General Chief complaint: Extremity Problem,Nontraumatic Stated complaint: P in R shoulder blade, numbness, sweating Time Seen by Provider: 02/23/25 12:50 Source: patient Mode of arrival: Ambulatory History of Present Illness HPI Narrative: 64-year-old woman with a history of anxiety, breast cancer with bilateral mastectomy and lymph nodes removed more from the right side than the left currently alone for the last 2 weeks as the remainder of her family is on prolonged camping trip presents complaining of approximately 5 minutes of sharp pain in the right upper chest radiating to her shoulder blade and associated with some mild paresthesia on the volar surface of her forearm. With the pain she reports she was slightly diaphoretic. All has since resolved she has never had pain quite like that previously she does have a history of lymphedema. She recently had bilateral mastectomy did see physical therapy for right upper chest and right shoulder pain yesterday. She notes that she is quite anxious at baseline and staving off of panic attack while we were discussing her symptoms in the waiting room. She declined any medications she wants to be able to drive herself home. No recent fever, cough, chills, abdominal pain, heart palpitations Related Data Home Medications ?Medication ?Instructions ?Recorded ?Confirmed metformin 500 mg tablet 500 mg PO .COMPLEX 08/30/18 01/23/25 Respironics Dreamstation CPAP #1 ea 09/05/18 01/23/25 buspirone 10 mg tablet 20 mg PO BID 01/18/20 01/23/25 chlorpheniramine maleate 4 mg 4 mg PO BID 09/23/20 01/23/25 tablet rosuvastatin 5 mg tablet 5 mg PO BEDTIME 09/23/20 01/23/25 blood-glucose sensor (Dexcom G7 #1 ea 03/23/23 01/23/25 Sensor device) fluoride (sodium) 1.1 % dental dental BID 03/23/23 01/23/25 paste (PreviDent 5000 Booster Plus) blood sugar diagnostic (Accu-Chek #10 ea 06/22/23 01/23/25 Guide test strips) cholecalciferol (vitamin D3) 25 25 mcg PO DAILY 06/22/23 01/23/25 mcg (1,000 unit) capsule ibuprofen 400 mg tablet 400 mg PO Q8H 06/22/23 01/23/25 lancets (Accu-Chek Softclix #100 ea 06/22/23 01/23/25 Lancets) pen needle, diabetic 32 gauge x #1,200 ea 06/22/23 01/23/25 (BD Kathie 2nd Gen Pen Needle) abemaciclib 150 mg tablet mg PO 05/30/24 01/23/25 (Verzenio) insulin aspart U-100 100 unit/mL 5 unit SUBCUT TID 05/30/24 01/23/25 (3 mL) subcutaneous pen (Novolog FlexPen U-100 Insulin aspart) letrozole 2.5 mg tablet mg PO DAILY 05/30/24 01/23/25 lorazepam 0.5 mg tablet 0.5 mg PO BEDTIME PRN 11/13/24 01/23/25 magnesium glycinate 1,000 mg PO 11/13/24 01/23/25 zometa IV .every 6 mo 11/13/24 01/23/25 Previous Rx's ?Medication ?Instructions ?Recorded nystatin 100,000 unit/gram topical 1 applic topical TID #60 grams 01/11/24 powder losartan 25 mg tablet 25 mg PO DAILY #90 tabs 02/08/25 Allergies Allergy/AdvReac Type Severity Reaction Status Date / Time hydrocodone (HYDROCODONE) Allergy Mild ITCHING Verified 02/23/25 12:44 erythromycin base AdvReac Unknown GI UPSET Verified 02/23/25 12:44 (ERYTHROMYCIN BASE) TO GENERIC Review of Systems Review of Systems Narrative: Pertinent positive and negative findings as per HPI Patient History Medical History Essential hypertension Osteoporosis of hand without pathological fracture Primary osteoarthritis, 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 Chronic pain of left wrist Status post chemotherapy (2005) Status post radiation therapy (2005) Arthritis of both hands Well controlled type 2 diabetes mellitus Obstructive sleep apnea of adult Ductal carcinoma in situ (DCIS) of right breast Abnormal Pap smear of cervix Anxiety Depression Diabetes mellitus Surgical History History of surgery on left wrist Status post excision of lipoma (1970) Status post wrist surgery (2001) Status post dilation and curettage (2011) Status post tubal ligation (1990) Status post delivery (1990) Status post breast biopsy (1986) Status post laparoscopy (1983) Status post tonsillectomy and adenoidectomy (1964) Status post surgery (12/04/11) Social History marital status: details: sugar Robin), lives in [place] household members: spouse lives independently: Yes caregiver/support person: No housing: house occupational status: previously employed Smoking Status: Never smoker second hand exposure: No alcohol intake: current substance use type: does not use Smoking Status: Never smoker alcohol intake frequency: holidays/special occasions only Exam Initial Vital Signs Initial Vital Signs: Vital Signs Temperature 97.4 F L 02/23/25 12:44 Pulse Rate 94 H 02/23/25 12:44 Respiratory Rate 18 02/23/25 12:44 Blood Pressure 182/84 H 02/23/25 12:44 Pulse Oximetry 100 02/23/25 12:44 Oxygen Delivery Method Room Air 02/23/25 12:44 General: Somewhat anxious but in no acute distress Able to give a complete and coherent history. Well-nourished well-developed HEENT: Moist mucous membranes, normal sclera with reactive pupils, Neck: No neck pain, Respiratory: Lungs are clear to auscultation, no wheezing no rales no rhonchi. Full and symmetrical air movement Chest: No reproducible chest wall pain, no rashes, no pain in her around her scapula with palpation. No subcutaneous air, bruising and her mastectomy scars are appropriate and as expected Cardiac: Regular rate and rhythm no murmurs no bruits Skin: Warm and dry, no rashes Neurologic: Grossly neurologically intact with no obvious asymmetries or abnormalities Extremities: Mild lymph edema in the right arm Psych: Cooperative, appropriate insight and affect Course Orders Ordered: ED Orders 02/23/25 12:52 XR chest 2V Stat Vital Signs Vital signs: Vital Signs - 8 hr 02/23/25 12:44 Temperature 97.4 F L Pulse Rate 94 H Respiratory Rate 18 Blood Pressure 182/84 H Pulse Oximetry 100 Oxygen Delivery Method Room Air MDM - Extremity (Nontraumatic) MDM Narrative Medical decision making narrative: 64-year-old woman with 5 minutes of sharp pain in the right upper chest radiating through to the shoulder blade with some mild forearm paresthesia. Completely resolved and not reproducible with palpation or upper extremity movement. She notes that she is quite anxious she also notes that she has had neck pain, shoulder pain, anterior chest wall pain. She saw physical therapist yesterday for similar complaints. We discussed options for treatment. She did have blood drawn this morning for her oncologist. Chest x-ray was ordered for reassurance. Labs done earlier this morning include a CBC which has her white count at 2.2 which is close to her baseline, hemoglobin of 11.2, again baseline. Chemistries are reassuring. Phosphorus is minimally low at 2.7 which is better than previously Chest x-ray shows no significant abnormalities I suspect that the majority of her symptoms are musculoskeletal in nature with exacerbation secondary to anxiety. Reviewed findings with her including reviewing blood work and results of chest x-ray. At this point there is no indication for further workup or hospitalization. She remains pain-free. She is safely discharge Discharge Plan Departure Patient Disposition: Home Clinical Impression: Acute pain of right shoulder Activity Restrictions/Additional Instructions: Thank you for coming in today Sometimes it is hard to know which pain is the pain that needs the most attention and that is even more difficult when your and son are administering in the [place]. I was able to reveal of the blood work done this morning for your oncologist. Everything looks at your baseline or slightly improved. There is nothing that looks life-threatening or requires additional workup here in the emergency department Your chest x-ray does not show anything severe more changing such as a collapsed lung or developing infection. At this point, I am not seeing a life-threatening explanation for this brief episode of pain that you experienced. I believe that if it happens again it is okay to use Tylenol and ibuprofen (unless your oncologist has requested that you avoid ibuprofen) If you find that you are getting worse or develop any new symptoms, please feel free to return to the emergency department for further evaluation. Prescriptions: No Action buspirone 10 mg tablet 20 mg PO BID metformin 500 mg tablet 500 mg PO .COMPLEX Patient Comments: 500 mg PO 3 QAM, 2 QHS; Rx Instructions: 500 mg PO 3 QAM, 2 QHS; nystatin 100,000 unit/gram powder 1 applic TOP TID Qty: 60 3RF losartan 25 mg tablet 25 mg PO DAILY Qty: 90 0RF lorazepam 0.5 mg tablet 0.5 mg PO BEDTIME PRN ibuprofen 400 mg tablet 400 mg PO Q8H cholecalciferol (vitamin D3) 25 mcg (1,000 unit) capsule 25 mcg PO DAILY (DME) lancets [Accu-Chek Softclix Lancets] Misc See Rx Instructions .ROUTE .MEDSUPPLY Qty: 100 Patient Comments: [NO ORIGINAL SIG] Rx Instructions: As directed (DME) Accu-Chek Guide test strips Strip See Rx Instructions .ROUTE .MEDSUPPLY Qty: 10 Patient Comments: [NO ORIGINAL SIG] Rx Instructions: As directed (DME) pen needle, diabetic [BD Kathie 2nd Gen Pen Needle] 32 gauge x 5/32 needle See Rx Instructions .ROUTE .MEDSUPPLY Qty: 1200 Patient Comments: [NO ORIGINAL SIG] Rx Instructions: As directed (DME) Dexcom G7 Sensor Device See Rx Instructions .ROUTE .MEDSUPPLY Qty: 1 Patient Comments: [NO ORIGINAL SIG] Rx Instructions: As directed fluoride (sodium) [PreviDent 5000 Booster Plus] 1.1 % paste dental BID letrozole 2.5 mg tablet PO DAILY Verzenio 150 mg tablet PO Patient Comments: [NO ORIGINAL SIG] insulin aspart U-100 [Novolog FlexPen U-100 Insulin] 100 unit/mL (3 mL) insulin pen 5 unit SUBCUT TID magnesium glycinate 100 mg magnesium capsule 1,000 mg PO zometa IV .every 6 mo chlorpheniramine maleate 4 mg Tablet 4 mg PO BID rosuvastatin 5 mg tablet 5 mg PO BEDTIME (DME) Respironics Dreamstation CPAP Qty: 1 Dose Instruction: As directed Patient Comments: Pressure: 8-14 cmH2O DME: [facility] Rx Instructions: As directed Referrals: Yeyo Rodriguez ARNP [Primary Care Provider, Medical] Stand Alone Forms: Patient Portal/API
== END 2025-02-23 13:55 | disposition home or self-care (01) ==
PROVIDERS: Emergency Provider Emergency Medicine; PCP Registered Nurse Diabetes Educator
DX: M25.511 Pain in right shoulder (principal); R07.9 Chest pain, unspecified; R20.2 Paresthesia of skin; M54.2 Cervicalgia; F41.9 Anxiety disorder, unspecified; C50.411 Malignant neoplasm of upper-outer quadrant of right female breast
CPT/HCPCS: 36415; 71046; 80053; 83735; 84100; 85025; 99281; 99283

== ENCOUNTER 2025-04-28 13:27 | Emergency (ER) | payer MEDICARE, OTHER, SELFPAY ==
[2025-04-28] VITALS (15 sets, daily range): BP systolic 130–154; BP diastolic 62–73; PULSE 78–99; RESP 13–22; TEMP 36.6; O2SAT 93–100; BMI 29.2
--- OUTSIDE RECORDS SUMMARY | 2025-04-28 13:29 | XMS_ITS | Encounter Summary ---
Author Organization [facility] Address [address] [place] [address] Care Team Providers Care Superintendent Pressure Name Role Phone Pcp, None Selected Primary Care Provider Unavail able Encounter Details Date Type Department Care Team ([facility] Contact Info) Description 05/22/2021 Abstract [facility] [address] [phone] Justin Gonzalez MD [address] [place] [phone] Social History Tobacco Use Types Packs/Day Years Used Date Smoking Tobacco: Never Smokeless Tobacco: Never Alcohol Use Standard Drinks/Week Comments No 0 (1 standard drink = 0.6 oz pur e alcohol) rarely Comments No Sex and Gender Information Value Date Recorded Sex Assigned at Not on file Legal Sex Female 11:57 AM PDT Gender Identity Not on file Sexual Orientation Not on file documented as of this encounter Plan of Treatment Upcoming Encounters Date Type Department Care Team (Late Contact Info) Description 10/05/2025 1:00 PM PDT Office Visit [facility] - Sleep Medicine [address] [place] [phone] Keanu Roman MD [address] [place] [address] documented as of this encounter Visit Diagnoses Not on filedocumented in this encounter Care Teams Superintendent Pressure Relationship Specialty Start Date End Date Pcp, None Selected PCP - General 08/17/24 documented as of this encounter
--- NOTE | 2025-04-28 13:50 | EKG_ITS ---
[address] [address] Test Date: 2025-04-28 Pat Name: Maia Alonzo Department: Room: Gender: Female Sampling Expert: YOHANNES CONNER : 1960 Requested By: Order Number: [id number] Reading MD: Kishan Arndt Measurements Intervals [place] Rate: 73 P: 67 [place]: 144 QRS: 20 QRSD: 78 T: 32 QT: 406 QTc: 447 Interpretive Statements Normal sinus rhythm with sinus arrhythmia Electronically Signed On 04-30-2025 10:22:38 PST by Kishan Arndt
--- NOTE | 2025-04-28 13:58 | ED.ABDPAIN ---
HPI - Abdominal Pain <Yousuf Powell, DO - Last Filed: 04/29/25 07:01> General Chief Complaint: Abdominal Pain Stated Complaint: Upper abd pain/referred by oncologist Time Seen by Provider: 04/28/25 13:28 Source: patient Mode of arrival: Ambulatory History of Present Illness HPI narrative: 64-year-old female history of anxiety breast cancer with bilateral mastectomy and lymph node removal from right side than left currently on chemo presents with epigastric pain since last Wednesday along with 1 bout of nonbilious nonbloody vomit. Patient denies chest pain. shortness breath, cough, fever, chills, body aches, sore throat, diarrhea, constipation, leg pain, leg sounds. Other than what is stated 14 pt ROS is negative. Related Data Home Medications ?Medication ?Instructions ?Recorded ?Confirmed metformin 500 mg tablet 500 mg PO .COMPLEX 08/30/18 03/26/25 Respironics Dreamstation CPAP #1 ea 09/05/18 03/26/25 buspirone 10 mg tablet 20 mg PO BID 01/18/20 03/26/25 chlorpheniramine maleate 4 mg 4 mg PO BID 09/23/20 03/26/25 tablet rosuvastatin 5 mg tablet 5 mg PO BEDTIME 09/23/20 03/26/25 blood-glucose sensor (Dexcom G7 #1 ea 03/23/23 03/26/25 Sensor device) fluoride (sodium) 1.1 % dental dental BID 03/23/23 03/26/25 paste (PreviDent 5000 Booster Plus) blood sugar diagnostic (Accu-Chek #10 ea 06/22/23 03/26/25 Guide test strips) cholecalciferol (vitamin D3) 25 25 mcg PO DAILY 06/22/23 03/26/25 mcg (1,000 unit) capsule ibuprofen 400 mg tablet 400 mg PO Q8H 06/22/23 03/26/25 lancets (Accu-Chek Softclix #100 ea 06/22/23 03/26/25 Lancets) pen needle, diabetic 32 gauge x #1,200 ea 06/22/23 03/26/25 (BD Kathie 2nd Gen Pen Needle) abemaciclib 150 mg tablet mg PO 05/30/24 03/26/25 (Verzenio) insulin aspart U-100 100 unit/mL 5 unit SUBCUT TID 05/30/24 03/26/25 (3 mL) subcutaneous pen (Novolog FlexPen U-100 Insulin aspart) letrozole 2.5 mg tablet mg PO DAILY 05/30/24 03/26/25 lorazepam 0.5 mg tablet 0.5 mg PO BEDTIME PRN 11/13/24 03/26/25 magnesium glycinate 1,000 mg PO 11/13/24 03/26/25 zometa IV .every 6 mo 11/13/24 03/26/25 Previous Rx's ?Medication ?Instructions ?Recorded nystatin 100,000 unit/gram topical 1 applic topical TID #60 grams 01/11/24 powder losartan 25 mg tablet 25 mg PO DAILY #90 tabs 02/08/25 Allergies Allergy/AdvReac Type Severity Reaction Status Date / Time hydrocodone (HYDROCODONE) Allergy Mild ITCHING Verified 04/28/25 13:41 erythromycin base AdvReac Unknown GI UPSET Verified 04/28/25 13:41 (ERYTHROMYCIN BASE) TO GENERIC Review of Systems <Yousuf Powell, - Last Filed: 04/29/25 07:01> Review of Systems ROS Unobtainable: All systems reviewed & are unremarkable except as noted in HPI and below Patient History <Yousuf Powell, DO - Last Filed: 04/29/25 07:01> Medical History Other low back pain Essential hypertension Osteoporosis of hand without pathological fracture Primary osteoarthritis, 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 Chronic pain of left wrist Status post chemotherapy (2005) Status post radiation therapy (2005) Arthritis of both hands Well controlled type 2 diabetes mellitus Obstructive sleep apnea of adult Ductal carcinoma in situ (DCIS) of right breast Abnormal Pap smear of cervix Anxiety Depression Diabetes mellitus Surgical History History of surgery on left wrist Status post excision of lipoma (1970) Status post wrist surgery (2001) Status post dilation and curettage (2011) Status post tubal ligation (1990) Status post delivery (1990) Status post breast biopsy (1986) Status post laparoscopy (1983) Status post tonsillectomy and adenoidectomy (1964) Status post surgery (12/04/11) Social History marital status: details: sugar Robin), lives in [place] household members: spouse lives independently: Yes caregiver/support person: No housing: house occupational status: previously employed Smoking Status: Never smoker second hand exposure: No alcohol intake: current substance use type: does not use Smoking Status: Never smoker alcohol intake frequency: holidays/special occasions only Exam <Yousuf Powell DO - Last Filed: 04/29/25 07:01> Narrative Exam Narrative: GENERAL: [64] year old patient appears stated age. Well-developed patient, in mild distress. HEAD: Atraumatic. Normocephalic. EYES: Pupils equal round and reactive. Extraocular motions intact. No scleral icterus. No injection or drainage. ENT: Nose without bleeding, purulent drainage. Throat without erythema, tonsillar hypertrophy or exudate. Airway patent. NECK: Trachea midline. Non tender CARDIOVASCULAR: Regular rate and rhythm without murmurs, gallops, or rubs. RESPIRATORY: Clear to auscultation. Breath sounds equal bilaterally. No wheezes, rales, or rhonchi. GASTROINTESTINAL: Abdomen soft, epigastric TTP no r/r/g EXTREMITIES: No edema or joint tenderness. BACK: Nontender without deformity or crepitance. No flank tenderness. NEURO: AOx3. SKIN: No rash or erythema of visible areas Initial Vital Signs Initial Vital Signs: Vital Signs Temperature 97.8 F 04/28/25 13:41 Pulse Rate 78 04/28/25 13:41 Respiratory Rate 16 04/28/25 13:41 Blood Pressure 145/73 H 04/28/25 13:41 Pulse Oximetry 100 04/28/25 13:41 Oxygen Delivery Method Room Air 04/28/25 13:41 <Kleber Silevrio MD - Last Filed: 04/29/25 02:24> Initial Vital Signs Initial Vital Signs: Vital Signs Temperature 97.8 F 04/28/25 13:41 Pulse Rate 78 04/28/25 13:41 Respiratory Rate 16 04/28/25 13:41 Blood Pressure 145/73 H 04/28/25 13:41 Pulse Oximetry 100 04/28/25 13:41 Oxygen Delivery Method Room Air 04/28/25 13:41 Course <Yousuf Powell DO - Last Filed: 04/29/25 07:01> Orders Ordered: Discontinued Medications Lactated Ringer's (Lactated Ringers) 1,000 mls @ 1,000 mls/hr IV BOLUS ONE Stop: 04/28/25 14:58 Last Infusion: 04/28/25 16:03 Dose: Infused Documented By: Admin: 04/28/25 14:23 Dose: 1,000 mls/hr Documented By: ALPHONSE Piperacillin Sod/Tazobactam (Sod 4.5 gm/ Sodium Chloride) 100 mls @ 200 mls/hr IV NOW ONE Stop: 04/28/25 18:45 Last Infusion: 04/28/25 19:49 Dose: Infused Documented By: Admin: 04/28/25 18:56 Dose: 200 mls/hr Documented By: ALPHONSE Ketorolac Tromethamine (Ketorolac 30 Mg/Ml Vial) 15 mg IV NOW ONE Stop: 04/28/25 14:00 Last Admin: 04/28/25 14:23 Dose: 15 mg Documented By: ALPHONSE Metoclopramide HCl (Metoclopramide 10 Mg/2 Ml Inj) 10 mg IV NOW ONE Stop: 04/28/25 14:00 Last Admin: 04/28/25 14:23 Dose: 10 mg Documented By: ALPHONSE Vital Signs Vital signs: Vital Signs - 8 hr 04/28/25 18:30 04/28/25 19:00 04/28/25 19:19 Pulse Rate 99 H 95 H Respiratory Rate 19 Blood Pressure 153/72 H Pulse Oximetry 100 99 04/28/25 19:19 04/28/25 19:30 04/28/25 19:30 Pulse Rate 93 H 88 Respiratory Rate 16 17 Blood Pressure 140/62 Pulse Oximetry 100 100 04/28/25 20:00 04/28/25 20:00 04/28/25 20:30 Pulse Rate 87 84 Respiratory Rate 20 22 Blood Pressure 130/62 Pulse Oximetry 99 98 04/28/25 20:30 04/28/25 21:00 04/28/25 21:00 Pulse Rate 90 Respiratory Rate 16 Blood Pressure 132/63 139/67 Pulse Oximetry 98 <Kleber Silverio MD - Last Filed: 04/29/25 02:24> Orders Ordered: Discontinued Medications Lactated Ringer's (Lactated Ringers) 1,000 mls @ 1,000 mls/hr IV BOLUS ONE Stop: 04/28/25 14:58 Last Infusion: 04/28/25 16:03 Dose: Infused Documented By: Admin: 04/28/25 14:23 Dose: 1,000 mls/hr Documented By: ALPHONSE Piperacillin Sod/Tazobactam (Sod 4.5 gm/ Sodium Chloride) 100 mls @ 200 mls/hr IV NOW ONE Stop: 04/28/25 18:45 Last Infusion: 04/28/25 19:49 Dose: Infused Documented By: Admin: 04/28/25 18:56 Dose: 200 mls/hr Documented By: ALPHONSE Ketorolac Tromethamine (Ketorolac 30 Mg/Ml Vial) 15 mg IV NOW ONE Stop: 04/28/25 14:00 Last Admin: 04/28/25 14:23 Dose: 15 mg Documented By: ALPHONSE Metoclopramide HCl (Metoclopramide 10 Mg/2 Ml Inj) 10 mg IV NOW ONE Stop: 04/28/25 14:00 Last Admin: 04/28/25 14:23 Dose: 10 mg Documented By: ALPHONSE Vital Signs Vital signs: Vital Signs - 8 hr 04/28/25 18:30 04/28/25 19:00 04/28/25 19:19 Pulse Rate 99 H 95 H Respiratory Rate 19 Blood Pressure 153/72 H Pulse Oximetry 100 99 04/28/25 19:19 04/28/25 19:30 04/28/25 19:30 Pulse Rate 93 H 88 Respiratory Rate 16 17 Blood Pressure 140/62 Pulse Oximetry 100 100 04/28/25 20:00 04/28/25 20:00 04/28/25 20:30 Pulse Rate 87 84 Respiratory Rate 20 22 Blood Pressure 130/62 Pulse Oximetry 99 98 04/28/25 20:30 04/28/25 21:00 04/28/25 21:00 Pulse Rate 90 Respiratory Rate 16 Blood Pressure 132/63 139/67 Pulse Oximetry 98 MDM - Abdominal Pain <Yousuf Powell DO - Last Filed: 04/29/25 07:01> Lab Data 04/28/25 14:10 04/28/25 14:10 Labs: Lab Results 12/27/25 12/27/25 12/27/25 Range/Units 14:10 14:10 14:10 WBC 2.5 L (4.5-11.0) X10^3/uL RBC 2.85 L (4.0-5.2) X10^6/uL Hgb 10.3 L (12.0-16.0) g/dL Hct 28.8 L (36-46) % MCV 100.9 H (80-100) fL MCH 36.2 H (26-34) PG MCHC 35.9 (30-36) % RDW 14.4 (11.6-14.8) % Plt Count 195 (150-400) X10^3/uL Neut % (Auto) 61.9 (50-75) % Lymph % (Auto) 26.2 (25-40) % Kendall % (Auto) 11.0 (3-14) % Eos % (Auto) 0.1 L (2-4) % Baso % (Auto) 0.8 (0-2) % Neut # (Auto) 1600 (8199-3910) /uL Lymph # (Auto) 700 L (4343-8895) /uL Kendall # (Auto) 300 (0-900) /uL Eos # (Auto) 0 (0-450) /uL Baso # (Auto) 0 (0-100) /uL Sodium 134 L (137-145) mmol/L Potassium 4.3 (3.4-5.1) mmol/L Chloride 100 (98-107) mmol/L Carbon Dioxide 23 (22-32) mmol/L BUN 17 (7-17) mg/dL Creatinine 1.00 (0.52-1.04) mg/dL Estimated GFR > 60 (>60) mL/min BUN/Creatinine Ratio 17.0 (6-22) Glucose 135 H (70-99) mg/dL Calcium 10.0 (8.4-10.2) mg/dL Total Bilirubin 2.2 H 2.1 H (0.2-1.3) mg/dL Conjugated Bilirubin 0.0 (0.0-0.3) md/dL Unconjugated Bilirubin 1.1 (0.0-1.1) mg/dL AST 178 H 183 H (14-36) IU/L ALT 177 H (<35) IU/L Alkaline Phosphatase (38-126) U/L Troponin I (0.01-0.034) ng/mL Total Protein (6.3-8.2) g/dL Albumin (3.5-5.0) g/dL Globulin (1.7-4.1) g/dL Albumin/Globulin Ratio (1.0-2.8) Lipase (23-300) U/L 04/28/25 04/28/25 04/28/25 Range/Units 14:10 14:10 14:10 WBC (4.5-11.0) X10^3/uL RBC (4.0-5.2) X10^6/uL Hgb (12.0-16.0) g/dL Hct (36-46) % MCV (80-100) fL MCH (26-34) PG MCHC (30-36) % RDW (11.6-14.8) % Plt Count (150-400) X10^3/uL Neut % (Auto) (50-75) % Lymph % (Auto) (25-40) % Kendall % (Auto) (3-14) % Eos % (Auto) (2-4) % Baso % (Auto) (0-2) % Neut # (Auto) (4426-3347) /uL Lymph # (Auto) (6552-4302) /uL Kendall # (Auto) (0-900) /uL Eos # (Auto) (0-450) /uL Baso # (Auto) (0-100) /uL Sodium (137-145) mmol/L Potassium (3.4-5.1) mmol/L Chloride (98-107) mmol/L Carbon Dioxide (22-32) mmol/L BUN (7-17) mg/dL Creatinine (0.52-1.04) mg/dL Estimated GFR (>60) mL/min BUN/Creatinine Ratio (6-22) Glucose (70-99) mg/dL Calcium (8.4-10.2) mg/dL Total Bilirubin (0.2-1.3) mg/dL Conjugated Bilirubin (0.0-0.3) md/dL Unconjugated Bilirubin (0.0-1.1) mg/dL AST (14-36) IU/L ALT 179 H (<35) IU/L Alkaline Phosphatase 113 114 (38-126) U/L Troponin I < 0.012 (0.01-0.034) ng/mL Total Protein 7.4 7.3 (6.3-8.2) g/dL Albumin 4.5 (3.5-5.0) g/dL Globulin (1.7-4.1) g/dL Albumin/Globulin Ratio (1.0-2.8) Lipase (23-300) U/L 04/28/25 04/28/25 04/28/25 Range/Units 14:10 14:10 14:10 WBC (4.5-11.0) X10^3/uL RBC (4.0-5.2) X10^6/uL Hgb (12.0-16.0) g/dL Hct (36-46) % MCV (80-100) fL MCH (26-34) PG MCHC (30-36) % RDW (11.6-14.8) % Plt Count (150-400) X10^3/uL Neut % (Auto) (50-75) % Lymph % (Auto) (25-40) % Kendall % (Auto) (3-14) % Eos % (Auto) (2-4) % Baso % (Auto) (0-2) % Neut # (Auto) (1383-6574) /uL Lymph # (Auto) (5807-4999) /uL Kendall # (Auto) (0-900) /uL Eos # (Auto) (0-450) /uL Baso # (Auto) (0-100) /uL Sodium (137-145) mmol/L Potassium (3.4-5.1) mmol/L Chloride (98-107) mmol/L Carbon Dioxide (22-32) mmol/L BUN (7-17) mg/dL Creatinine (0.52-1.04) mg/dL Estimated GFR (>60) mL/min BUN/Creatinine Ratio (6-22) Glucose (70-99) mg/dL Calcium (8.4-10.2) mg/dL Total Bilirubin (0.2-1.3) mg/dL Conjugated Bilirubin (0.0-0.3) md/dL Unconjugated Bilirubin (0.0-1.1) mg/dL AST (14-36) IU/L ALT (<35) IU/L Alkaline Phosphatase (38-126) U/L Troponin I (0.01-0.034) ng/mL Total Protein (6.3-8.2) g/dL Albumin 4.5 (3.5-5.0) g/dL Globulin 2.9 2.8 (1.7-4.1) g/dL Albumin/Globulin Ratio 1.6 1.6 (1.0-2.8) Lipase 120 (23-300) U/L 12/27/25 Range/Units 16:10 WBC (4.5-11.0) X10^3/uL RBC (4.0-5.2) X10^6/uL Hgb (12.0-16.0) g/dL Hct (36-46) % MCV (80-100) fL MCH (26-34) PG MCHC (30-36) % RDW (11.6-14.8) % Plt Count (150-400) X10^3/uL Neut % (Auto) (50-75) % Lymph % (Auto) (25-40) % Kendall % (Auto) (3-14) % Eos % (Auto) (2-4) % Baso % (Auto) (0-2) % Neut # (Auto) (1088-6874) /uL Lymph # (Auto) (1021-9783) /uL Kendall # (Auto) (0-900) /uL Eos # (Auto) (0-450) /uL Baso # (Auto) (0-100) /uL Sodium (137-145) mmol/L Potassium (3.4-5.1) mmol/L Chloride (98-107) mmol/L Carbon Dioxide (22-32) mmol/L BUN (7-17) mg/dL Creatinine (0.52-1.04) mg/dL Estimated GFR (>60) mL/min BUN/Creatinine Ratio (6-22) Glucose (70-99) mg/dL Calcium (8.4-10.2) mg/dL Total Bilirubin (0.2-1.3) mg/dL Conjugated Bilirubin (0.0-0.3) md/dL Unconjugated Bilirubin (0.0-1.1) mg/dL AST (14-36) IU/L ALT (<35) IU/L Alkaline Phosphatase (38-126) U/L Troponin I 0.015 (0.01-0.034) ng/mL Total Protein (6.3-8.2) g/dL Albumin (3.5-5.0) g/dL Globulin (1.7-4.1) g/dL Albumin/Globulin Ratio (1.0-2.8) Lipase (23-300) U/L Point of care testing: Urine Dip Bedside Urine Glucose Negative Bedside Urine Bilirubin - Negative Bedside Urine Ketone - Negative Urine Specific [place] 1.010 Bedside Urine Occult Blood - Negative Bedside Urine pH 6.0 Bedside Urine Protein - Negative Bedside Urine Urobilinogen - Negative Bedside Urine Nitrite - Negative Bedside Urine Leukocytes - Negative Esterase Imaging Data CT scan - abdomen/pelvis: Radiologist's Impression: [address] [address] [address] Scan Report Signed Patient: Maia Alonzo MR#: [id number] : 1960 Acct:[id number] Age/Sex: 64 / F Date of Service: 04/28/25 Loc: ED Accession Number: [id number] Procedure: CT angio chest abdomen pelvis Ordering Provider: Yousuf Powell D.O. PROCEDURE: CT ANGIO CHEST ABDOMEN PELVIS INDICATIONS: hx of breast ca/ epigastric pain TECHNIQUE: Precontrast 5 mm thick sections acquired from the lung apices to the iliac crests. After the administration of intravenous contrast, 2.5 mm thick sections again acquired from the lung apices to the iliac crests. Maximum intensity projection (MIP) oblique sagittal and coronal reformats were then acquired. For radiation dose reduction, the following was used: automated exposure control. COMPARISON: None. FINDINGS: Image quality: There is streak artifact seen through the level of the shoulders. AORTA: No aortic aneurysm. No acute aortic syndrome. CHEST: Lower Neck: No enlarged lymph nodes. Thyroid: No thyroid nodules which require sonographic evaluation. Axillae: Bilateral axillary clips are seen. Chest Wall: Mastectomy change can be seen on both sides. Lungs and Pleura: No pneumothorax or pleural effusions. There is fibrotic change seen within the anterior aspect of the right lung. No consolidation or suspicious nodules. Heart: Heart size is normal. No pericardial effusion. Thoracic Vessels: Pulmonary arteries demonstrate normal size. Mediastinum and Ada: No enlarged lymph nodes. Esophagus: No wall thickening. No hiatal hernia. ABDOMEN: Liver: No solid mass. Gallbladder: Layering gallstones can be seen within the gallbladder. No additional CT findings of cholecystitis are seen. Biliary ducts: No biliary dilation. Pancreas: No ductal dilation. Spleen: Size is within normal limits. Adrenal Glands: No adrenal nodules. Kidneys and Ureters: No hydronephrosis. No solid mass. No complex renal cystic lesion which requires follow up. Stomach and Bowel: The colon is relatively decompressed. No dilated loops of small bowel are seen. A normal appendix is noted. Peritoneum: No abnormal intraperitoneal fluid. No free air. Ventral Wall: No hernia. Abdominal Nodes: No retroperitoneal or mesenteric adenopathy by size criteria. Vessels: Inferior vena cava is normal in size. PELVIS: Pelvic Organs: No adnexal masses are seen on either side. Bladder: Unremarkable. Pelvic Nodes: No enlarged lymph nodes. Miscellaneous: No inguinal hernias are seen. Bones: Age-appropriate bony degenerative changes are seen. IMPRESSION: Gallstones are seen without additional CT findings of cholecystitis. Negative for small bowel obstruction. The colon is relatively decompressed. US - abdomen: Radiologist's Impression: [place] [address] Ultrasound Report Signed Patient: Maia Alonzo MR#: [id number] : 1960 Acct:[id number] Age/Sex: 64 / F Date of Service: 04/28/25 Loc: Accession Number: [id number] Procedure: US abdomen limited Ordering Provider: Yousuf Powell D.O. PROCEDURE: US ABDOMEN LIMITED INDICATIONS: gall stone TECHNIQUE: Real-time scanning was performed of the abdominal and retroperitoneal organs, with image documentation. COMPARISON: None. FINDINGS/IMPRESSION: Mobile gallstones present. No wall thickening. Negative sonographic Lazar sign. No intrahepatic or extrahepatic biliary dilation, with the common bile duct measuring 5.3 centimeter. Findings do not indicate acute cholecystitis. ECG Data Interpretation: NSR HR 73 ID 144 QRS [address]-t wave change Unchanged from 01/23/25 [facility] Narrative Medical decision making narrative: All lab work, vital signs, nurse triage note, medication list, previous ER visits, and all imaging studies reviewed. WBC 2.5 hemoglobin 10.3 platelet 195 sodium 134 potassium 4.3 chloride 100 CO2 23 BUN 17 creatinine 1.0 glucose 135 T bili 2.2 AST 170 ALT 177. Two sets troponin normal 1st set less than 0.012 and 2nd set 0.015. CTA chest abdomen gallstones are seen without additional CT findings cholecystitis. Negative for small bowel obstruction. Colon is relatively decompressed. Ultrasound mobile gallstone negative sonographic Lazar sign. No intrahepatic or extrahepatic biliary dilatation. Common bile duct measuring 5.3 cm. No wall thickening. Findings did not indicate acute cholecystitis. Case d/w [facility] regarding pt pending GI MD consult for transfer. Pt s/o to at shift change pending final disposition. <Kleber Silverio MD - Last Filed: 04/29/25 02:24> Lab Data Attestation: I reviewed the patient's lab results. Lab results narrative: White blood cell count 2500, hemoglobin 10.3, platelets 195,000. Glucose 135. Normal renal function, serum CO2, electrolytes. Total bilirubin 2.2 elevated, AST 178 elevated, ALT 177 elevated, alkaline phosphatase 113 normal. Lipase 120 normal. Urine dip negative. Labs: Lab Results 04/28/25 04/28/25 04/28/25 Range/Units 14:10 14:10 14:10 WBC 2.5 L (4.5-11.0) X10^3/uL RBC 2.85 L (4.0-5.2) X10^6/uL Hgb 10.3 L (12.0-16.0) g/dL Hct 28.8 L (36-46) % MCV 100.9 H (80-100) fL MCH 36.2 H (26-34) PG MCHC 35.9 (30-36) % RDW 14.4 (11.6-14.8) % Plt Count 195 (150-400) X10^3/uL Neut % (Auto) 61.9 (50-75) % Lymph % (Auto) 26.2 (25-40) % Kendall % (Auto) 11.0 (3-14) % Eos % (Auto) 0.1 L (2-4) % Baso % (Auto) 0.8 (0-2) % Neut # (Auto) 1600 (9304-3603) /uL Lymph # (Auto) 700 L (4700-5761) /uL Kendall # (Auto) 300 (0-900) /uL Eos # (Auto) 0 (0-450) /uL Baso # (Auto) 0 (0-100) /uL Sodium 134 L (137-145) mmol/L Potassium 4.3 (3.4-5.1) mmol/L Chloride 100 (98-107) mmol/L Carbon Dioxide 23 (22-32) mmol/L BUN 17 (7-17) mg/dL Creatinine 1.00 (0.52-1.04) mg/dL Estimated GFR > 60 (>60) mL/min BUN/Creatinine Ratio 17.0 (6-22) Glucose 135 H (70-99) mg/dL Calcium 10.0 (8.4-10.2) mg/dL Total Bilirubin 2.2 H 2.1 H (0.2-1.3) mg/dL Conjugated Bilirubin 0.0 (0.0-0.3) md/dL Unconjugated Bilirubin 1.1 (0.0-1.1) mg/dL AST 178 H 183 H (14-36) IU/L ALT 177 H (<35) IU/L Alkaline Phosphatase (38-126) U/L Troponin I (0.01-0.034) ng/mL Total Protein (6.3-8.2) g/dL Albumin (3.5-5.0) g/dL Globulin (1.7-4.1) g/dL Albumin/Globulin Ratio (1.0-2.8) Lipase (23-300) U/L 04/28/25 04/28/25 04/28/25 Range/Units 14:10 14:10 14:10 WBC (4.5-11.0) X10^3/uL RBC (4.0-5.2) X10^6/uL Hgb (12.0-16.0) g/dL Hct (36-46) % MCV (80-100) fL MCH (26-34) PG MCHC (30-36) % RDW (11.6-14.8) % Plt Count (150-400) X10^3/uL Neut % (Auto) (50-75) % Lymph % (Auto) (25-40) % Kendall % (Auto) (3-14) % Eos % (Auto) (2-4) % Baso % (Auto) (0-2) % Neut # (Auto) (9751-5212) /uL Lymph # (Auto) (5392-9531) /uL Kendall # (Auto) (0-900) /uL Eos # (Auto) (0-450) /uL Baso # (Auto) (0-100) /uL Sodium (137-145) mmol/L Potassium (3.4-5.1) mmol/L Chloride (98-107) mmol/L Carbon Dioxide (22-32) mmol/L BUN (7-17) mg/dL Creatinine (0.52-1.04) mg/dL Estimated GFR (>60) mL/min BUN/Creatinine Ratio (6-22) Glucose (70-99) mg/dL Calcium (8.4-10.2) mg/dL Total Bilirubin (0.2-1.3) mg/dL Conjugated Bilirubin (0.0-0.3) md/dL Unconjugated Bilirubin (0.0-1.1) mg/dL AST (14-36) IU/L ALT 179 H (<35) IU/L Alkaline Phosphatase 113 114 (38-126) U/L Troponin I < 0.012 (0.01-0.034) ng/mL Total Protein 7.4 7.3 (6.3-8.2) g/dL Albumin 4.5 (3.5-5.0) g/dL Globulin (1.7-4.1) g/dL Albumin/Globulin Ratio (1.0-2.8) Lipase (23-300) U/L 04/28/25 04/28/25 04/28/25 Range/Units 14:10 14:10 14:10 WBC (4.5-11.0) X10^3/uL RBC (4.0-5.2) X10^6/uL Hgb (12.0-16.0) g/dL Hct (36-46) % MCV (80-100) fL MCH (26-34) PG MCHC (30-36) % RDW (11.6-14.8) % Plt Count (150-400) X10^3/uL Neut % (Auto) (50-75) % Lymph % (Auto) (25-40) % Kendall % (Auto) (3-14) % Eos % (Auto) (2-4) % Baso % (Auto) (0-2) % Neut # (Auto) (8990-5106) /uL Lymph # (Auto) (1376-8819) /uL Kendall # (Auto) (0-900) /uL Eos # (Auto) (0-450) /uL Baso # (Auto) (0-100) /uL Sodium (137-145) mmol/L Potassium (3.4-5.1) mmol/L Chloride (98-107) mmol/L Carbon Dioxide (22-32) mmol/L BUN (7-17) mg/dL Creatinine (0.52-1.04) mg/dL Estimated GFR (>60) mL/min BUN/Creatinine Ratio (6-22) Glucose (70-99) mg/dL Calcium (8.4-10.2) mg/dL Total Bilirubin (0.2-1.3) mg/dL Conjugated Bilirubin (0.0-0.3) md/dL Unconjugated Bilirubin (0.0-1.1) mg/dL AST (14-36) IU/L ALT (<35) IU/L Alkaline Phosphatase (38-126) U/L Troponin I (0.01-0.034) ng/mL Total Protein (6.3-8.2) g/dL Albumin 4.5 (3.5-5.0) g/dL Globulin 2.9 2.8 (1.7-4.1) g/dL Albumin/Globulin Ratio 1.6 1.6 (1.0-2.8) Lipase 120 (23-300) U/L 12/27/25 Range/Units 16:10 WBC (4.5-11.0) X10^3/uL RBC (4.0-5.2) X10^6/uL Hgb (12.0-16.0) g/dL Hct (36-46) % MCV (80-100) fL MCH (26-34) PG MCHC (30-36) % RDW (11.6-14.8) % Plt Count (150-400) X10^3/uL Neut % (Auto) (50-75) % Lymph % (Auto) (25-40) % [place] % (Auto) (3-14) % Eos % (Auto) (2-4) % Baso % (Auto) (0-2) % Neut # (Auto) (7630-7346) /uL Lymph # (Auto) (6702-1676) /uL [place] # (Auto) (0-900) /uL Eos # (Auto) (0-450) /uL Baso # (Auto) (0-100) /uL Sodium (137-145) mmol/L Potassium (3.4-5.1) mmol/L Chloride (98-107) mmol/L Carbon Dioxide (22-32) mmol/L BUN (7-17) mg/dL Creatinine (0.52-1.04) mg/dL Estimated GFR (>60) mL/min BUN/Creatinine Ratio (6-22) Glucose (70-99) mg/dL Calcium (8.4-10.2) mg/dL Total Bilirubin (0.2-1.3) mg/dL Conjugated Bilirubin (0.0-0.3) md/dL Unconjugated Bilirubin (0.0-1.1) mg/dL AST (14-36) IU/L ALT (<35) IU/L Alkaline Phosphatase (38-126) U/L Troponin I 0.015 (0.01-0.034) ng/mL Total Protein (6.3-8.2) g/dL Albumin (3.5-5.0) g/dL Globulin (1.7-4.1) g/dL Albumin/Globulin Ratio (1.0-2.8) Lipase (23-300) U/L Point of care testing: Urine Dip Bedside Urine Glucose Negative Bedside Urine Bilirubin - Negative Bedside Urine Ketone - Negative Urine Specific [place] 1.010 Bedside Urine Occult Blood - Negative Bedside Urine pH 6.0 Bedside Urine Protein - Negative Bedside Urine Urobilinogen - Negative Bedside Urine Nitrite - Negative Bedside Urine Leukocytes - Negative Esterase Imaging Data US - abdomen: Radiologist's Impression: [address] [address] Ultrasound Report Signed Patient: Maia Alonzo MR#: [id number] : 1960 Acct:[id number] Age/Sex: 64 / F Date of Service: 04/28/25 Loc: ED Accession Number: [id number] Procedure: US abdomen limited Ordering Provider: Yousuf Powell D.O. PROCEDURE: US ABDOMEN LIMITED INDICATIONS: gall stone TECHNIQUE: Real-time scanning was performed of the abdominal and retroperitoneal organs, with image documentation. COMPARISON: None. IMPRESSION: Gallstones are seen without additional CT findings of cholecystitis. Negative for small bowel obstruction. The colon is relatively decompressed. MDM Narrative Medical decision making narrative: All lab work, vital signs, nurse triage note, medication list, previous ER visits, and all imaging studies reviewed. WBC 2.5 hemoglobin 10.3 platelet 195 sodium 134 potassium 4.3 chloride 100 CO2 23 BUN 17 creatinine 1.0 glucose 135 T bili 2.2 AST 170 ALT 177. Two sets troponin normal 1st set less than 0.012 and 2nd set 0.015. CTA chest abdomen gallstones are seen without additional CT findings cholecystitis. Negative for small bowel obstruction. Colon is relatively decompressed. Ultrasound mobile gallstone negative sonographic Lazar sign. No intrahepatic or extrahepatic biliary dilatation. Common bile duct measuring 5.3 cm. No wall thickening. Findings did not indicate acute cholecystitis. Case d/w [facility] Transfer [place] regarding pt pending GI MD consult for transfer. Pt s/o to at shift change pending final disposition. 04/28/25, 1830, Jean Claude. Sign-out from Dr. Powell. 64-year-old female with history of breast cancer status post prior mastectomy on chemotherapy, with ongoing leukopenia, epigastric discomfort today, increased liver functions mildly change compared to baseline normal range January 2025, normal lipase. CT abdomen and pelvis today showed gallstones without cholecystitis changes. Ultrasound right upper quadrant abdomen showed gallstones without cholecystitis changes, no mentioned of any CBD dilatation. Interval change liver functions, with gallstones, consider obstructing gallstone, consider GI consult. Await call back from GI, no GI specialty services available here. IV seen empiric antibiotics had been given. Assumed care. Lab data: White blood cell count 2500, hemoglobin 10.3, platelets 195,000. Glucose 135. Normal renal function, serum CO2, electrolytes. Total bilirubin 2.2 elevated (was normal 1.2 on 02/23/2025), AST 178 elevated (was normal 32 on 02/23/2025), ALT 177 elevated (was normal 28 on 02/23/2025), alkaline phosphatase 113 normal. Lipase 120 normal. Urine dip negative. CT abdomen and pelvis. IMPRESSION: Gallstones are seen without additional CT findings of cholecystitis. Negative for small bowel obstruction. The colon is relatively decompressed. See radiology report. US right upper quadrant abdomen. IMPRESSION: Gallstones are seen without additional CT findings of cholecystitis. Negative for small bowel obstruction. The colon is relatively decompressed. See radiology report. 1999, discussed with hospitalist Selena Buenrostro who accepts for transfer and coordination of MRCP and/or GI/ERCP as needed. Keep NPO. Patient and aware, ground EMS transportation to be arranged Discharge Plan Departure Patient Disposition: [facility] Clinical Impression: Abnormal liver function tests, Cholelithiasis, Abdominal pain Prescriptions: No Action buspirone 10 mg tablet 20 mg PO BID metformin 500 mg tablet 500 mg PO .COMPLEX Patient Comments: 500 mg PO 3 QAM, 2 QHS; Rx Instructions: 500 mg PO 3 QAM, 2 QHS; nystatin 100,000 unit/gram powder 1 applic TOP TID Qty: 60 3RF losartan 25 mg tablet 25 mg PO DAILY Qty: 90 0RF lorazepam 0.5 mg tablet 0.5 mg PO BEDTIME PRN ibuprofen 400 mg tablet 400 mg PO Q8H cholecalciferol (vitamin D3) 25 mcg (1,000 unit) capsule 25 mcg PO DAILY (DME) lancets [Accu-Chek Softclix Lancets] Misc See Rx Instructions .ROUTE .MEDSUPPLY Qty: 100 Patient Comments: [NO ORIGINAL SIG] Rx Instructions: As directed (DME) Accu-Chek Guide test strips Strip See Rx Instructions .ROUTE .MEDSUPPLY Qty: 10 Patient Comments: [NO ORIGINAL SIG] Rx Instructions: As directed (DME) pen needle, diabetic [BD Kathie 2nd Gen Pen Needle] 32 gauge x 5/32 needle See Rx Instructions .ROUTE .MEDSUPPLY Qty: 1200 Patient Comments: [NO ORIGINAL SIG] Rx Instructions: As directed (DME) Dexcom G7 Sensor Device See Rx Instructions .ROUTE .MEDSUPPLY Qty: 1 Patient Comments: [NO ORIGINAL SIG] Rx Instructions: As directed fluoride (sodium) [PreviDent 5000 Booster Plus] 1.1 % paste dental BID letrozole 2.5 mg tablet PO DAILY Verzenio 150 mg tablet PO Patient Comments: [NO ORIGINAL SIG] insulin aspart U-100 [Novolog FlexPen U-100 Insulin] 100 unit/mL (3 mL) insulin pen 5 unit SUBCUT TID magnesium glycinate 100 mg magnesium capsule 1,000 mg PO zometa IV .every 6 mo chlorpheniramine maleate 4 mg Tablet 4 mg PO BID rosuvastatin 5 mg tablet 5 mg PO BEDTIME (DME) Respironics Dreamstation CPAP Qty: 1 Dose Instruction: As directed Patient Comments: Pressure: 8-14 cmH2O DME: [facility] Rx Instructions: As directed Referrals: Yeyo Rodriguez ARNP [Primary Care Provider, Medical]
[2025-04-28 14:22] LABS: Add Manual Diff / Slide Review NO; Hematocrit 28.8 % (36-46); Hemoglobin 10.3 g/dL (12.0-16.0); Lymphocytes Absolute Auto 700 /uL (1100-4500); Mean Corpuscular HGB Conc 35.9 % (30-36); Mean Corpuscular Hemoglobin 36.2 PG (26-34); Mean Corpuscular Volume 100.9 fL (80-100); Platelet Count 195 X10^3/uL (150-400)
[2025-04-28] MEDS: METOCLOPRAMIDE 10 MG/2 ML INJ IV (14:23)
[2025-04-28] MEDS: KETOROLAC 30 MG/ML VIAL 15 MG IV (14:23)
[2025-04-28] MEDS: LACTATED RINGERS 1,000 ML 1000 ML IV (14:23)
[2025-04-28 14:34] LABS: Alanine Aminotransferase 177 IU/L (<35); Albumin 4.5 g/dL (3.5-5.0); Albumin Globulin Ratio 1.6 (1.0-2.8); Alkaline Phosphatase 113 U/L (38-126); Blood Urea Nitrogen 17 mg/dL (7-17); Calcium 10.0 mg/dL (8.4-10.2); Carbon Dioxide 23 mmol/L (22-32); Chloride 100 mmol/L (98-107); Estimated Glomerular Filt Rate > 60 mL/min (>60); Globulin 2.9 g/dL (1.7-4.1); Glucose 135 mg/dL (70-99); HEMOLYSIS < 15 (0-50); Lipase 120 U/L (23-300); Potassium 4.3 mmol/L (3.4-5.1); Sodium 134 mmol/L (137-145); Total Protein 7.4 g/dL (6.3-8.2)
[2025-04-28 14:46] LABS: Troponin I < 0.012 ng/mL (0.01-0.034)
--- NOTE | 2025-04-28 16:02 | EKG_ITS ---
[address] [id number] [address] [address] Test Date: 2025-04-28 Pat Name: Maia Alonzo Department: Room: Gender: Female Medical Records Specialist: : [id number] Requested By: Order Number: [id number] Reading MD: Kishan Arndt Measurements Intervals [place] Rate: 97 P: 56 [place]: 142 QRS: 4 QRSD: 78 T: 24 QT: 374 QTc: 474 Interpretive Statements Normal sinus rhythm Electronically Signed On 04-30-2025 10:23:57 PST by Kishan Arndt
--- NOTE | 2025-04-28 16:31 | DI.US.S_ITS ---
PROCEDURE: US ABDOMEN LIMITED INDICATIONS: gall stone TECHNIQUE: Real-time scanning was performed of the abdominal and retroperitoneal organs, with image documentation. COMPARISON: None. FINDINGS/IMPRESSION: Mobile gallstones present. No wall thickening. Negative sonographic Lazar sign. No intrahepatic or extrahepatic biliary dilation, with the common bile duct measuring 5.3 centimeter. Findings do not indicate acute cholecystitis. Dictated by: Yassine Luu M.D. on 04/28/2025 at 16:09 Approved by: Yassine Luu M.D. on 04/28/2025 at 16:10
[2025-04-28 16:38] LABS: Troponin I 0.015 ng/mL (0.01-0.034)
[2025-04-28] MEDS: PIPERACILLIN/TAZO 4.5 GM in SODIUM CHLORIDE 0.9% 100 ML IV (18:56)
[2025-04-28 20:50] LABS: Alanine Aminotransferase 179 IU/L (<35); Albumin 4.5 g/dL (3.5-5.0); Albumin Globulin Ratio 1.6 (1.0-2.8); Alkaline Phosphatase 114 U/L (38-126); Globulin 2.8 g/dL (1.7-4.1); HEMOLYSIS < 15 (0-50); Total Protein 7.3 g/dL (6.3-8.2)
--- NOTE | 2025-04-28 21:32 | PC.NURSE ---
xfer of care to LORA Rn [phone] [id number] (report given)
== END 2025-04-28 21:33 | disposition short-term general hospital (02) ==
PROVIDERS: Family Medicine; Emergency Provider Emergency Medicine; PCP Registered Nurse Diabetes Educator
DX: R79.89 Other specified abnormal findings of blood chemistry (principal); K80.20 Calculus of gallbladder without cholecystitis without obstruction; R10.9 Unspecified abdominal pain
CPT/HCPCS: 36415; 71275; 74174; 76705; 80053; 80076; 81003; 83690; 84484; 85025; 93005; 96361; 96365; 96375; 99284; J1885; J2543; J2765; J7050; J7120; Q9967